=== PATIENT | male | born 1990 | race Caucasian/White ===

== ENCOUNTER 2016-10-24 13:10 | Inpatient (IN) | payer OTHER ==
[2016-10-24 17:38] VITALS: BMI 19.8
--- NOTE | 2016-10-24 18:35 | HP ---
COWS - Scale Resting Pulse: 0= [place] 80 or Below Sweatin= Chills/Flushing Restless Observation: 3= Extraneous Movement Pupil Size: 1= Pupils >than Normal Bone or Joint Aches: 1= Mild Discomfort Runny Nose/ Eye Tearin= Runny Nose/Eyes GI Upset > 30mins: 1= Stomach Cramp Tremor Observation: 1= Tremor [place], Not Seen Yawning Observation: 1= 1-2x During Session Anxiety or Irritability: 2=Irritable/Anxious Goose Flesh Skin: 0=Smooth Skin COWS Score: 13 Admission ROS S - [facility] Chief Complaint: WITHDRAWAL SYMPTOMS Allergies/Adverse Reactions: Allergies Allergy/AdvReac Type Severity Reaction Status Date / Time No Known Allergies Allergy Verified 10/24/16 17:34 History of Present Illness: 26 Y.O. MAN WITH A HISTORY OF HEROIN DEPENDENCE IS HERE SEEKING DETOX. THIS IS HIS FIRST ADMISSION TO [facility]. HE REPORTS HE WAS IN [facility] IN 03/2016 FOR DETOX BUT LEFT AMA. Exam Limitations: No Limitations - Ebola screening Have you traveled outside of the country in the last 21 days: No Have you been sick,other than usual withdrawal symptoms: No - Review of Systems Constitutional: Changes in sleep EENT: reports: No Symptoms Reported Respiratory: reports: No Symptoms reported Cardiac: reports: No Symptoms Reported GI: reports: No Symptoms Reported : reports: No Symptoms Reported Musculoskeletal: reports: No Symptoms Reported Integumentary: reports: No Symptoms Reported Neuro: reports: No Symptoms reported Endocrine: reports: No Symptoms Reported Hematology: reports: No Symptoms Reported Psychiatric: reports: Judgement Intact, Mood/Affect Appropiate, Orientated x3 Other Systems: Reviewed and Negative Patient History - Patient Medical History Hx Anemia: No Hx Asthma: No Hx Chronic Obstructive Pulmonary Disease (COPD): No Hx Cancer: No Hx Cardiac Disorders: No Hx Congestive Heart Failure: No Hx Hypertension: No Hx Hypercholesterolemia: No Hx Pacemaker: No HX Cerebrovascular Accident: No Hx Seizures: No Hx Dementia: No Hx Diabetes: No Hx Gastrointestinal Disorders: No Hx Liver Disease: No Hx Genitourinary Disorders: No Hx Sexually Transmitted Disorders: No Hx Renal Disease (ESRD): No Hx Thyroid Disease: No Hx Human Immunodeficiency Virus (HIV): No Hx Hepatitis C: No Hx Depression: No Hx Suicide Attempt: No Hx Bipolar Disorder: No Hx Schizophrenia: No - Patient Surgical History Past Surgical History: No Hx Neurologic Surgery: No Hx Cataract Extraction: No Hx Cardiac Surgery: No Hx Lung Surgery: No Hx Breast Surgery: No Hx Breast Biopsy: No Hx Abdominal Surgery: No Hx Appendectomy: No Hx Cholecystectomy: No Hx Genitourinary Surgery: No Hx Section: No Hx Orthopedic Surgery: No Other Surgical History: FX REPAIR-2000 Anesthesia Reaction: Yes - PPD History Previous Implant?: Yes Documented Results: Negative w/o proof PPD to be Administered?: Yes - Reproductive History Patient is a Female of Child Bearing Age (11 -55 yrs old): No - Smoking Cessation Smoking history: Current every day smoker Have you smoked in the past 12 months: Yes Aproximately how many cigarettes per day: 20 Hx Chewing Tobacco Use: No Initiated information on smoking cessation: Yes 'Breaking Loose' booklet given: 10/24/16 - Substance & Tx. History Hx Alcohol Use: No Hx Substance Use: Yes Substance Use Type: Heroin Hx Substance Use Treatment: Yes (LAST DETOX IN 03/2016) - Substances Abused Heroin Route: Injection Frequency: Daily Amount used: 20 BAGS Age of first use: 22 Date of Last Use: 10/24/16 Family Disease History - Family Disease History Family History: Denies Admission Physical Exam BHS - Vital Signs Vital Signs: Vital Signs - 24 hr 10/24/16 17:36 Temperature 98.1 F Pulse Rate 70 Respiratory 18 Rate Blood Pressure 132/75 - Physical General Appearance: Yes: No Apparent Distress, Nourished, Appropriately Dressed HEENTM: Yes: Hearing grossly Normal, Normocephalic, Normal Voice Respiratory: Yes: Chest Non-Tender, Lungs Clear, Normal Breath Sounds, No Respiratory Distress, No Accessory Muscle Use Neck: Yes: No masses,lesions,Nodules Breast: Yes: Breast Exam Deferred Cardiology: Yes: Regular Rhythm, Regular Rate Abdominal: Yes: Non Tender, Flat, Soft Genitourinary: Yes: Other (NO COMPLAINTS REPORTED) Back: Yes: Normal Inspection Musculoskeletal: Yes: Gait Steady Extremities: Yes: Normal Capillary Refill, Normal Inspection, Normal Range of Motion Neurological: Yes: staffing administrator II-XII NML intact, Fully Oriented, Alert, Normal Mood/ Affect, Normal Response Integumentary: Yes: Normal Color, Dry, Warm, Track Meyers Lymphatic: Yes: Within Normal Limits - Diagnostic (1) Opioid dependence with withdrawal Current Visit: Yes Status: Chronic (2) Nicotine dependence Current Visit: Yes Status: Chronic Cleared for Admission [facility] - Detox or Rehab [facility] Level of Care: Medically Managed Detox Regimen/Protocol: Methadone [facility] Breath Alcohol Content Breath Alcohol Content: 0 Urine Drug Screen - Results Drug Screen Negative: No Urine Drug Screen Results: THC-Marijuana, OPI-Opiates
[2016-10-24] MEDS ORDERED: IBUPROFEN 400 MG TABLET (FP) PO PRN (18:45)
[2016-10-24] MEDS ORDERED: LOPERAMIDE HCL 2 MG CAPSULE PO PRN (18:45)
[2016-10-24] MEDS ORDERED: MENTHOL/PHENOL 1 EACH UD MM PRN (18:45)
[2016-10-24] MEDS ORDERED: MAGNESIUM HYDROX 2400MG/30ML ORAL SUSPENSION 30 ML CUP PO PRN (18:45)
[2016-10-24] MEDS ORDERED: guaiFENesin/D-METHORPHAN HB 10 ML UNIT-DOSE CUPS PO PRN (18:45)
[2016-10-24] MEDS ORDERED: ACETAMINOPHEN 325 MG TABLET (FP) PO PRN (18:45)
[2016-10-24] MEDS ORDERED: NICOTINE POLACRILEX 2 MG GUM BC PRN (18:45)
[2016-10-24] MEDS ORDERED: hydrOXYzine PAMOATE 50 MG CAPSULE (FP) PO PRN (18:45)
[2016-10-24] MEDS ORDERED: MAGNESIUM CITRATE 300 ML BOTTLE PO PRN (18:45)
[2016-10-24] MEDS ORDERED: P-EPHED 60MG/TRIPROLIDI 2.5MG TABLET PO PRN (18:45)
[2016-10-24] MEDS ORDERED: MAG HYDROX/AL HYDROX/SIMETH 30 ML UNIT-DOSE CUP PO PRN (18:45)
[2016-10-24] MEDS ORDERED: METHADONE HCL 10 MG TABLET (FOR DETOX USE ONLY) PO ONE ×2 (19:15→23:00)
[2016-10-24] MEDS: diazePAM 5 MG TABLET PO PRN (19:42)
[2016-10-24 19:58] LABS: URINE APPEARANCE CLOUDY; URINE BILIRUBIN NEGATIVE (NEGATIVE); URINE BLOOD NEGATIVE (NEGATIVE); URINE COLOR DKYELLOW; URINE GLUCOSE (UA) NEGATIVE (NEGATIVE); URINE KETONE NEGATIVE (NEGATIVE); URINE LEUK ESTERASE NEGATIVE (NEGATIVE); URINE NITRITE NEGATIVE (NEGATIVE); URINE PROTEIN NEGATIVE (NEGATIVE); URINE UROBILINOGEN NEGATIVE mg/dL (0.2-1.0)
[2016-10-24] MEDS: THIAMINE HCL 100 MG TABLET (FP) PO SCH (22:38)
[2016-10-24] MEDS: diphenhydrAMINE HCL 50 MG CAPSULE PO PRN (22:39)
[2016-10-25] MEDS: diazePAM 5 MG TABLET PO PRN ×5 (05:01→22:46)
--- NOTE | 2016-10-25 09:24 | PN ---
S COWS - Scale Resting Pulse: 0= [place] 80 or Below Sweatin= Chills/Flushing Restless Observation: 3= Extraneous Movement Pupil Size: 2= Moderately Dilated Bone or Joint Aches: 4=Acute Joint/Muscle Pain Runny Nose/ Eye Tearin= Nasal Congestion GI Upset > 30mins: 1= Stomach Cramp Tremor Observation of Outstretched Hands: 1= Tremor [place], Not Seen Yawning Observation: 2= >3x During Session Anxiety or Irritability: 2=Irritable/Anxious Goose Flesh Skin: 0=Smooth Skin COWS Score: 17 BHS Progress Note (SOAP) Subjective: MUSCLE ACHES/CRAMPS LOWER EXTREMITIES,FATIGUE,YAWNING,DECREASED APPETITE, INTERMITTENT SLEEP. Objective: 10/25/16 09:23 Vital Signs Temperature 98 F 10/25/16 05:48 Pulse Rate 74 10/25/16 05:48 Respiratory Rate 18 10/25/16 05:48 Blood Pressure 133/80 10/25/16 05:48 O2 Sat by Pulse Oximetry (%) Laboratory Last Values Urine Color Dkyellow 10/24/16 19:15 Urine Appearance Cloudy 10/24/16 19:15 Urine pH 7.0 (5.0-8.0) 10/24/16 19:15 Ur Specific [place] 1.015 (1.005-1.025) 10/24/16 19:15 Urine Protein Negative (NEGATIVE) 10/24/16 19:15 Urine Glucose (UA) Negative (NEGATIVE) 10/24/16 19:15 Urine Ketones Negative (NEGATIVE) 10/24/16 19:15 Urine Blood Negative (NEGATIVE) 10/24/16 19:15 Urine Nitrite Negative (NEGATIVE) 10/24/16 19:15 Urine Bilirubin Negative (NEGATIVE) 10/24/16 19:15 Urine Urobilinogen Negative mg/dL (0.2-1.0) 10/24/16 19:15 Ur Leukocyte Esterase Negative (NEGATIVE) 10/24/16 19:15 OTHER LAB RESULTS PENDING Assessment: 10/25/16 09:24 WITHDRAWAL SX Plan: CONTINUE DETOX
[2016-10-25] MEDS ORDERED: METHADONE HCL 10 MG TABLET (FOR DETOX USE ONLY) PO ONE (10:00)
[2016-10-25] MEDS: cloNIDine HCL 0.1 MG TABLET PO PRN (10:11)
[2016-10-25] MEDS: NICOTINE 21 MG/24 HOURS TOPICAL PATCH TD SCH (10:12)
[2016-10-25] MEDS: PRENATAL VITAMINS W/ FOLIC ACID TABLET (FP) PO SCH (10:12)
[2016-10-25 10:20] LABS: MCH 29.5 pg (25.7-33.7); MCHC 33.2 g/dl (32.0-35.9); PLATELET COUNT 224 K/MM3 (134-434); RDW 12.9 % (11.9-15.9); WHITE BLOOD COUNT 7.6 K/mm3 (4.0-10.0)
[2016-10-25 10:53] LABS: ALBUMIN 3.6 g/dl (3.4-5.0); ALK PHOS 93 U/L (45-117); ANION GAP 7 (8-16); BILIRUBIN,TOTAL 0.3 mg/dL (0.2-1.0); CALCIUM 9.1 mg/dL (8.5-10.1); CO2 26 mmol/L (21-32); CREATININE 0.7 mg/dL (0.7-1.3); GLUCOSE,RANDOM 98 mg/dL (74-106); SGOT/AST 12 U/L (15-37); SGPT/ALT 20 U/L (12-78)
--- NOTE | 2016-10-25 11:10 | EKG ---
Test Reason : Blood Pressure : / mmHG Vent. Rate : 065 BPM Atrial Rate : 065 BPM P-R Int : 142 ms QRS Dur : 094 ms QT Int : 392 ms P-R-T Axes : 052 071 055 degrees QTc Int : 407 ms NORMAL SINUS RHYTHM MODERATE VOLTAGE CRITERIA FOR LVH, MAY BE NORMAL VARIANT EARLY REPOLARIZATION BORDERLINE ECG NO PREVIOUS ECGS AVAILABLE Confirmed by REVA ROBB, BETSY ([id number]) on 10/25/2016 11:10:02 AM Referred By: Confirmed By:BETSY ARDON MD
--- NOTE | 2016-10-25 11:14 | EKG ---
Test Reason : Blood Pressure : / mmHG Vent. Rate : 064 BPM Atrial Rate : 064 BPM P-R Int : 150 ms QRS Dur : 094 ms QT Int : 396 ms P-R-T Axes : 052 056 037 degrees QTc Int : 408 ms SINUS RHYTHM WITH MARKED SINUS ARRHYTHMIA OTHERWISE NORMAL ECG WHEN COMPARED WITH ECG OF 24-OCT-2016 18:48, NO SIGNIFICANT CHANGE WAS FOUND Confirmed by BETSY ARDON MD ([id number]) on 10/25/2016 11:13:34 AM Referred By: Confirmed By:BETSY ARDON MD
[2016-10-25 14:14] LABS: HIV 1 & 2 AB NEGATIVE; HIV 1 AGp24 NEGATIVE
[2016-10-25] MEDS: diphenhydrAMINE HCL 50 MG CAPSULE PO PRN (22:45)
[2016-10-25] MEDS: THIAMINE HCL 100 MG TABLET (FP) PO SCH (22:45)
[2016-10-26] MEDS: diazePAM 5 MG TABLET PO PRN ×2 (06:01→10:35)
[2016-10-26] MEDS: cloNIDine HCL 0.1 MG TABLET PO PRN (06:01)
[2016-10-26 09:26] VITALS: BP 137/78; PULSE 79; TEMP 96.8
--- NOTE | 2016-10-26 09:55 | PN ---
BHS COWS - Scale Resting Pulse: 1= [place] 81-100 Sweatin= Chills/Flushing Restless Observation: 3= Extraneous Movement Pupil Size: 2= Moderately Dilated Bone or Joint Aches: 4=Acute Joint/Muscle Pain Runny Nose/ Eye Tearin= Nasal Congestion GI Upset > 30mins: 1= Stomach Cramp Tremor Observation of Outstretched Hands: 2= Slight Tremor Visible Yawning Observation: 2= >3x During Session Anxiety or Irritability: 2=Irritable/Anxious Goose Flesh Skin: 0=Smooth Skin COWS Score: 19 BHS Progress Note (SOAP) Subjective: IRRITABILITY,HOT/COLD SWEATS,MUSCLE ACHES/SPASMS,LOSS OF APPETITE,INTERMITTENT SLEEP. Objective: 10/26/16 09:52 Vital Signs Temperature 96.8 F L 10/26/16 09:20 Pulse Rate 79 10/26/16 09:20 Respiratory Rate 16 10/26/16 09:20 Blood Pressure 137/78 10/26/16 09:20 O2 Sat by Pulse Oximetry (%) Laboratory Last Values WBC 7.6 K/mm3 (4.0-10.0) 10/25/16 06:30 RBC 4.63 M/mm3 (4.00-5.60) 10/25/16 06:30 Hgb 13.7 GM/dL (11.7-16.9) 10/25/16 06:30 Hct 41.2 % (35.4-49) 10/25/16 06:30 MCV 89.0 fl (80-96) 10/25/16 06:30 MCH 29.5 pg (25.7-33.7) 10/25/16 06:30 MCHC 33.2 g/dl (32.0-35.9) 10/25/16 06:30 RDW 12.9 % (11.9-15.9) 10/25/16 06:30 Plt Count 224 K/MM3 (134-434) 10/25/16 06:30 MPV 8.0 fl (7.5-11.1) 10/25/16 06:30 Sodium 140 mmol/L (136-145) 10/25/16 06:30 Potassium 4.3 mmol/L (3.5-5.1) 10/25/16 06:30 Chloride 107 mmol/L (98-107) 10/25/16 06:30 Carbon Dioxide 26 mmol/L (21-32) 10/25/16 06:30 Anion Gap 7 (8-16) L 10/25/16 06:30 BUN 7 mg/dL (7-18) 10/25/16 06:30 Creatinine 0.7 mg/dL (0.7-1.3) 10/25/16 06:30 Creat Clearance w eGFR > 60 (>60) 10/25/16 06:30 Random Glucose 98 mg/dL (74-106) 10/25/16 06:30 Calcium 9.1 mg/dL (8.5-10.1) 10/25/16 06:30 Total Bilirubin 0.3 mg/dL (0.2-1.0) 10/25/16 06:30 AST 12 U/L (15-37) L 10/25/16 06:30 ALT 20 U/L (12-78) 10/25/16 06:30 Alkaline Phosphatase 93 U/L (45-117) 10/25/16 06:30 Total Protein 7.0 g/dl (6.4-8.2) 10/25/16 06:30 Albumin 3.6 g/dl (3.4-5.0) 10/25/16 06:30 Urine Color Dkyellow 10/24/16 19:15 Urine Appearance Cloudy 10/24/16 19:15 Urine pH 7.0 (5.0-8.0) 10/24/16 19:15 Ur Specific [place] 1.015 (1.005-1.025) 10/24/16 19:15 Urine Protein Negative (NEGATIVE) 10/24/16 19:15 Urine Glucose (UA) Negative (NEGATIVE) 10/24/16 19:15 Urine Ketones Negative (NEGATIVE) 10/24/16 19:15 Urine Blood Negative (NEGATIVE) 10/24/16 19:15 Urine Nitrite Negative (NEGATIVE) 10/24/16 19:15 Urine Bilirubin Negative (NEGATIVE) 10/24/16 19:15 Urine Urobilinogen Negative mg/dL (0.2-1.0) 10/24/16 19:15 Ur Leukocyte Esterase Negative (NEGATIVE) 10/24/16 19:15 RPR Titer Nonreactive (NONREACTIVE) 07/19/17 06:30 Hepatitis C Antibody <0.1 s/co ratio (0.0-0.9) 10/24/16 06:30 HIV 1&2 Antibody Screen Negative 10/25/16 06:30 HIV P24 Antigen Negative 10/25/16 06:30 LABS NOTED Assessment: 10/26/16 09:52 WITHDRAWAL SX Plan: CONTINUE DETOX INCREASE PO FLUIDS FLEXERIL DIRECTED INCREASE BENADRYL 100 MG PO HS
[2016-10-26] MEDS ORDERED: METHADONE HCL 5 MG TABLET (FOR DETOX USE ONLY) PO ONE (10:00)
[2016-10-26] MEDS ORDERED: cloNIDine HCL 0.1 MG TABLET PO SCH ×2 (10:00→14:00)
[2016-10-26] MEDS: PRENATAL VITAMINS W/ FOLIC ACID TABLET (FP) PO SCH (10:35)
[2016-10-26] MEDS: NICOTINE 21 MG/24 HOURS TOPICAL PATCH TD SCH (10:38)
[2016-10-26] MEDS ORDERED: CYCLOBENZAPRINE HCL 10 MG TABLET (FP) PO SCH (14:00)
--- NOTE | 2016-10-26 14:41 | DS ---
[facility] Detox Discharge Summary Admission Date: 10/24/16 Discharge Date: 10/26/16 - History Present History: Opioid Dependence Additional Comments: PT DECLINED TO CONTINUE WITH DETOX STATING "I WANNA GO SOMEWHERE ELSE". SAYS HE WANTS MORE MEDICINE. ALL MANAGEMENT EFFORTS TO URB THE PATIENT'S WITHDRAWAL SX PROVED UNSUCCESSFUL. ALERT O X 3. NAD. Pertinent Past History: UNREMARKABLE - Physical Exam Results Vital Signs: Vital Signs Temperature 96.8 F L 10/26/16 09:20 Pulse Rate 79 10/26/16 09:20 Respiratory Rate 16 10/26/16 09:20 Blood Pressure 137/78 10/26/16 09:20 O2 Sat by Pulse Oximetry (%) Pertinent Admission Physical Exam Findings: WITHDRAWAL SX Laboratory Last Values WBC 7.6 K/mm3 (4.0-10.0) 10/25/16 06:30 RBC 4.63 M/mm3 (4.00-5.60) 10/25/16 06:30 Hgb 13.7 GM/dL (11.7-16.9) 10/25/16 06:30 Hct 41.2 % (35.4-49) 10/25/16 06:30 MCV 89.0 fl (80-96) 10/25/16 06:30 MCH 29.5 pg (25.7-33.7) 10/25/16 06:30 MCHC 33.2 g/dl (32.0-35.9) 10/25/16 06:30 RDW 12.9 % (11.9-15.9) 10/25/16 06:30 Plt Count 224 K/MM3 (134-434) 10/25/16 06:30 MPV 8.0 fl (7.5-11.1) 10/25/16 06:30 Sodium 140 mmol/L (136-145) 10/25/16 06:30 Potassium 4.3 mmol/L (3.5-5.1) 10/25/16 06:30 Chloride 107 mmol/L (98-107) 10/25/16 06:30 Carbon Dioxide 26 mmol/L (21-32) 10/25/16 06:30 Anion Gap 7 (8-16) L 10/25/16 06:30 BUN 7 mg/dL (7-18) 10/25/16 06:30 Creatinine 0.7 mg/dL (0.7-1.3) 10/25/16 06:30 Creat Clearance w eGFR > 60 (>60) 10/25/16 06:30 Random Glucose 98 mg/dL (74-106) 10/25/16 06:30 Calcium 9.1 mg/dL (8.5-10.1) 10/25/16 06:30 Total Bilirubin 0.3 mg/dL (0.2-1.0) 10/25/16 06:30 AST 12 U/L (15-37) L 10/25/16 06:30 ALT 20 U/L (12-78) 10/25/16 06:30 Alkaline Phosphatase 93 U/L (45-117) 10/25/16 06:30 Total Protein 7.0 g/dl (6.4-8.2) 10/25/16 06:30 Albumin 3.6 g/dl (3.4-5.0) 10/25/16 06:30 Urine Color Dkyellow 10/24/16 19:15 Urine Appearance Cloudy 10/24/16 19:15 Urine pH 7.0 (5.0-8.0) 10/24/16 19:15 Ur Specific [place] 1.015 (1.005-1.025) 10/24/16 19:15 Urine Protein Negative (NEGATIVE) 10/24/16 19:15 Urine Glucose (UA) Negative (NEGATIVE) 10/24/16 19:15 Urine Ketones Negative (NEGATIVE) 10/24/16 19:15 Urine Blood Negative (NEGATIVE) 10/24/16 19:15 Urine Nitrite Negative (NEGATIVE) 10/24/16 19:15 Urine Bilirubin Negative (NEGATIVE) 10/24/16 19:15 Urine Urobilinogen Negative mg/dL (0.2-1.0) 10/24/16 19:15 Ur Leukocyte Esterase Negative (NEGATIVE) 10/24/16 19:15 RPR Titer Nonreactive (NONREACTIVE) 10/25/16 06:30 Hepatitis C Antibody <0.1 s/co ratio (0.0-0.9) 10/24/16 06:30 HIV 1&2 Antibody Screen Negative 10/25/16 06:30 HIV P24 Antigen Negative 10/25/16 06:30 - Treatment Hospital Course: Discharged Condition Good - Medication Discharge Medications: Ambulatory Orders NK [No Known Home Medication] 10/24/16 - Diagnosis (1) Nicotine dependence Status: Acute Qualifiers: Nicotine product type: cigarettes Substance use status: in withdrawal Qualified Code(s): F17.213 - Nicotine dependence, cigarettes, with withdrawal (2) Opioid dependence with withdrawal Status: Acute - AMA Did Patient Leave Against Medical Advice: Yes (AMA)
[2016-10-27] MEDS ORDERED: METHADONE HCL 5 MG TABLET (FOR DETOX USE ONLY) PO ONE (10:00)
[2016-10-28] MEDS ORDERED: METHADONE HCL 10 MG TABLET (FOR DETOX USE ONLY) PO ONE (10:00)
[2016-10-29] MEDS ORDERED: METHADONE HCL 5 MG TABLET (FOR DETOX USE ONLY) PO ONE (06:00)
== END 2016-10-26 14:25 | disposition left against medical advice (07) | DRG 770 ==
LOC: YASAS 13:10 → Y3N 18:09
PROVIDERS: ADMIT Internal Medicine Addiction Medicine; ATTEND Internal Medicine Addiction Medicine
PROC: HZ2ZZZZ Detoxification Services for Substance Abuse Treatment (ICD-10-PCS; principal; 2016-10-26)
DX: F11.23 Opioid dependence with withdrawal (principal); F17.213 Nicotine dependence, cigarettes, with withdrawal
CPT/HCPCS: 36415; 80053; 81003; 85027; 86593; 86803; 87389; 93005; 93010

== ENCOUNTER 2017-03-23 09:48 | Inpatient (IN) | payer OTHER ==
[2017-03-23 10:14] VITALS: BMI 19.3
--- NOTE | 2017-03-23 12:39 | HP ---
Admission [facility] Chief Complaint: REHAB TX FOR DRUG ADDICTION. Allergies/Adverse Reactions: Allergies Allergy/AdvReac Type Severity Reaction Status Date / Time No Known Allergies Allergy Verified 03/23/17 10:27 History of Present Illness: 26 Y/O MALE WITH A HX OF HEROIN DEPENDENCE BUT IN [facility] SEEKING REHAB TX. REFERRED FROM [facility]. Exam Limitations: No Limitations - Ebola screening Have you traveled outside of the country in the last 21 days: No Have you had contact with anyone from an Ebola affected area: No Have you been sick,other than usual withdrawal symptoms: No Do you have a fever: No - Review of Systems Constitutional: Chills, Loss of Appetite, Night Sweats, Changes in sleep, Unintentional Wgt. Loss EENT: reports: Tearing, Nose Congestion, Dental Problems (CAVITIES) Respiratory: reports: No Symptoms reported Cardiac: reports: No Symptoms Reported GI: reports: Constipated : reports: No Symptoms Reported Musculoskeletal: reports: Back Pain, Joint Pain, Muscle Pain Integumentary: reports: Bruising Neuro: reports: Headache, Tremors Endocrine: reports: No Symptoms Reported Hematology: reports: No Symptoms Reported Psychiatric: reports: Orientated x3, Anxious, Depressed Other Systems: Reviewed and Negative Patient History - Patient Medical History Hx Anemia: No Hx Asthma: No Hx Chronic Obstructive Pulmonary Disease (COPD): No Hx Cancer: No Hx Cardiac Disorders: No Hx Congestive Heart Failure: No Hx Hypertension: No Hx Hypercholesterolemia: No Hx Pacemaker: No HX Cerebrovascular Accident: No Hx Seizures: No Hx Dementia: No Hx Diabetes: No Hx Gastrointestinal Disorders: No Hx Liver Disease: No Hx Genitourinary Disorders: No Hx Sexually Transmitted Disorders: No Hx Renal Disease (ESRD): No Hx Thyroid Disease: No Hx Human Immunodeficiency Virus (HIV): No (NEGATIVE HX) Hx Hepatitis C: No Hx Depression: Yes (ON MED) Hx Suicide Attempt: No (DENIES) Hx Bipolar Disorder: No Hx Schizophrenia: No - Patient Surgical History Past Surgical History: Yes Hx Neurologic Surgery: No Hx Cataract Extraction: No Hx Cardiac Surgery: No Hx Lung Surgery: No Hx Breast Surgery: No Hx Breast Biopsy: No Hx Abdominal Surgery: No Hx Appendectomy: No Hx Cholecystectomy: No Hx Genitourinary Surgery: No Hx Section: No Hx Orthopedic Surgery: No Other Surgical History: FX REPAIR-2000 L femur Anesthesia Reaction: Yes - PPD History Previous Implant?: Yes Documented Results: Negative w/o proof Implanted On Prior [facility] Admission?: Yes Date: 10/26/16 ( SIGNED AMA-NO RESULT) Results: NONE PPD to be Administered?: Yes - Reproductive History Patient is a Female of Child Bearing Age (11 -55 yrs old): No (MALE) - Smoking Cessation Smoking history: Current every day smoker Have you smoked in the past 12 months: Yes Aproximately how many cigarettes per day: 20 Hx Chewing Tobacco Use: No Initiated information on smoking cessation: Yes 'Breaking Loose' booklet given: 03/23/17 - Substance & Tx. History Hx Alcohol Use: Yes (BEER ON OCCASION) Hx Substance Use: Yes (HEROIN) Substance Use Type: Heroin Hx Substance Use Treatment: Yes (LAST TX AT [facility] REHAB) - Substances Abused Heroin Route: Injection Frequency: 1-3 times last 30 days Amount used: 2 bags Age of first use: 22 Date of Last Use: 03/19/17 Family Disease History - Family Disease History Family Disease History: Other: Father (HTN), Mother (BIPOLAR DISORDER) Admission Physical Exam S - Vital Signs Vital Signs: Vital Signs - 24 hr 03/23/17 10:04 Temperature 97.7 F Pulse Rate 80 Respiratory 18 Rate Blood Pressure 148/100 - Physical General Appearance: Yes: No Apparent Distress, Anxious HEENTM: Yes: EOMI, Normocephalic, SIOBHAN, Pharynx Normal Respiratory: Yes: Chest Non-Tender, Lungs Clear, Normal Breath Sounds, No Respiratory Distress Neck: Yes: No masses,lesions,Nodules, Supple, Trachea in good position Breast: Yes: Breast Exam Deferred Cardiology: Yes: Regular Rhythm, Regular Rate, S1, S2 Abdominal: Yes: Normal Bowel Sounds, Non Tender, Flat, Soft Genitourinary: Yes: Other (N/C) Musculoskeletal: Yes: full range of Motion, Gait Steady Extremities: Yes: Normal Range of Motion, Non-Tender Neurological: Yes: tread cutter II-XII NML intact, Fully Oriented, Alert, Motor Strength 5/5 Integumentary: Yes: Dry, Warm, Track Meyers (NO REDNESS/SWELLING) Lymphatic: Yes: Within Normal Limits - Diagnostic (1) Nicotine dependence Current Visit: No Status: Acute Qualifiers: Nicotine product type: cigarettes Substance use status: in withdrawal Qualified Code(s): F17.213 - Nicotine dependence, cigarettes, with withdrawal (2) Opioid dependence with withdrawal Current Visit: No Status: Acute Cleared for Admission [facility] - Detox or Rehab Claeared for Rehab Admission: Yes [facility] Breath Alcohol Content Breath Alcohol Content: 0 Urine Drug Screen - Results Drug Screen Negative: No Urine Drug Screen Results: OPI-Opiates, MTD-Methadone, OXY-Oxycodone Inpatient Rehab Admission - Initial Determination Are CD services needed?: Yes Free of communicable disease: Yes Not in need of hospitalization: Yes - Rehab Admission Criteria Patient is meeting Inpatient Rehab admission criteria:: Yes
[2017-03-23] MEDS ORDERED: MENTHOL/PHENOL 1 EACH UD MM PRN (12:53)
[2017-03-23] MEDS ORDERED: LOPERAMIDE HCL 2 MG CAPSULE PO PRN (12:53)
[2017-03-23] MEDS ORDERED: MAGNESIUM HYDROX 2400MG/30ML ORAL SUSPENSION 30 ML CUP PO PRN (12:53)
[2017-03-23] MEDS ORDERED: P-EPHED 60MG/TRIPROLIDI 2.5MG TABLET PO PRN (12:53)
[2017-03-23] MEDS ORDERED: MAGNESIUM CITRATE 300 ML BOTTLE PO PRN (12:53)
[2017-03-23] MEDS ORDERED: guaiFENesin/D-METHORPHAN HB 10 ML UNIT-DOSE CUPS PO PRN (12:53)
[2017-03-23] MEDS ORDERED: IBUPROFEN 400 MG TABLET (FP) PO PRN (12:53)
[2017-03-23] MEDS ORDERED: MAG HYDROX/AL HYDROX/SIMETH 30 ML UNIT-DOSE CUP PO PRN (12:53)
[2017-03-23] MEDS ORDERED: hydrOXYzine PAMOATE 25 MG CAPSULE (FP) PO PRN (12:53)
[2017-03-23] MEDS ORDERED: METHADONE HCL 10 MG TABLET PO ONE (13:01)
--- NOTE | 2017-03-23 13:39 | HP ---
Psychiatrist Admission - Data Date of interview: 03/23/17 Admission source: [facility] MMTP/Court mandated(violation of probation) Identifying data: This is the first [facility] for this 26 years old single male, unemployed with no source of income, domiciled living with family Medical History: Significant for history of orthosurery for fracture left femur. Patient is on methadone 130 mg/day . Smokes cigaettes 1ppd Psychiatric History: Reports that his first psychiatric contact was in January 2017 while admitted to [facility] for inpatient rehab. There, he said he was diagnosed with depression/anxiety and prescribed Zoloft 100 mg po daily and Seroquel 50 mg po HS. On discharge, he was referred to [facility] where he was continued on same medications till he got arrested for violation of probation on Sunday03/20/17. He was released from longterm today and court mandated to attend rehab at this facility. Reports feeling and sleeping well. Requests to resume medication during the course of his treatment in this facility Physical/Sexual Abuse/Trauma History: Denies history of verbal, physical or sexual abuse as well as DV relationship Additional Comment: Reports history of 2 previous misdemeanor arrests on charges of possession of cannabis and possession of narcotic. Reports being on probation for a year Vital Signs: Vital Signs - 24 hr 03/23/17 10:04 Temperature 97.7 F Pulse Rate 80 Respiratory 18 Rate Blood Pressure 148/100 Allergies/Adverse Reactions: Allergies Allergy/AdvReac Type Severity Reaction Status Date / Time No Known Allergies Allergy Verified 03/23/17 10:27 Date of last physical exam: 03/23/17 Concur with the findings of this exam: Yes - Substance Abuse/Tx History Hx Alcohol Use: No Hx Substance Use: Yes Substance Use Type: Heroin (Started using herin at age 22, consumes 2 bags 1-3 times in the last 30 days. Last used on 03/19/17 ) Hx Substance Use Treatment: Yes (3 previous inpt detox & one inpt rehab @ [facility]) Mental Status Exam - Mental Status Exam Alert and Oriented to: Time, Place, Person Cognitive Function: Fair Patient Appearance: Well Groomed Mood: Hopeful, Euthymic Affect: Appropriate Patient Behavior: Cooperative Speech Pattern: Clear Voice Loudness: Normal Thought Process: Intact, Goal Oriented Thought Disorder: Not Present Hallucinations: Denies Suicidal Ideation: Denies Homicidal Ideation: Denies Insight/Judgement: Fair Sleep: Fair Appetite: Good Muscle strength/Tone: Normal Gait/Station: Normal Psychiatric Findings - Problem List ([place] 1, 2,3) (1) Opioid dependence Current Visit: Yes Status: Acute (2) Opioid dependence on agonist therapy Current Visit: Yes Status: Acute (3) Nicotine dependence Current Visit: Yes Status: Acute (4) Depressive disorder Current Visit: Yes Status: Chronic (5) Substance induced mood disorder Current Visit: Yes Status: Ruled-out (6) Fracture of left femur Current Visit: Yes Status: Acute - Initial Treatment Plan Initial Treatment Plan: 1) Resume Zoloft 100 mg po daily and Seroquel 50 mg po HS. 2) Monitor progress
[2017-03-23] MEDS: NICOTINE 21 MG/24 HOURS TOPICAL PATCH TD SCH (15:03)
[2017-03-23] MEDS: NICOTINE POLACRILEX 4 MG GUM BUC PRN (15:04)
[2017-03-23 16:35] LABS: HEMATOCRIT 43.2 % (35.4-49); HEMOGLOBIN 14.4 GM/dL (11.7-16.9); MCH 30.3 pg (25.7-33.7); MCHC 33.5 g/dl (32.0-35.9); MEAN CELL VOLUME 90.6 fl (80-96); MEAN PLT VOLUME 8.5 fl (7.5-11.1); PLATELET COUNT 233 K/MM3 (134-434); RBC 4.76 M/mm3 (4.00-5.60); RDW 13.4 % (11.9-15.9); WHITE BLOOD COUNT 12.7 K/mm3 (4.0-10.0)
[2017-03-23 16:39] LABS: URINE APPEARANCE CLOUDY; URINE BILIRUBIN NEGATIVE (NEGATIVE); URINE BLOOD NEGATIVE (NEGATIVE); URINE COLOR AMBER; URINE GLUCOSE (UA) NEGATIVE (NEGATIVE); URINE KETONE TRACE (NEGATIVE); URINE LEUK ESTERASE NEGATIVE (NEGATIVE); URINE NITRITE NEGATIVE (NEGATIVE)
[2017-03-23 17:05] LABS: ANION GAP 7 (8-16); BLOOD UREA NITROGEN 14 mg/dL (7-18); CALCIUM 8.5 mg/dL (8.5-10.1); CHLORIDE 106 mmol/L (98-107); CO2 29 mmol/L (21-32); GLUCOSE,RANDOM 91 mg/dL (74-106); POTASSIUM 3.7 mmol/L (3.5-5.1); SODIUM 142 mmol/L (136-145)
[2017-03-23 17:09] LABS: ALK PHOS 78 U/L (45-117); BILIRUBIN,TOTAL 0.3 mg/dL (0.2-1.0); CREATININE 0.8 mg/dL (0.7-1.3); SGOT/AST 11 U/L (15-37); SGPT/ALT 25 U/L (12-78); TOT PROT 7.2 g/dl (6.4-8.2)
[2017-03-23 17:11] LABS: URINE PROTEIN 1+ (NEGATIVE)
[2017-03-23 17:34] LABS: CALCIUM OXALATE CRYSTALS RARE /hpf (NONE SEEN); URINE BACTERIA RARE /hpf (NONE SEEN); URINE MUCUS MANY
[2017-03-23] MEDS: THIAMINE HCL 100 MG TABLET (FP) PO SCH (21:31)
[2017-03-23] MEDS: QUEtiapine FUMARATE 50 MG TABLET PO SCH (21:31)
[2017-03-24] MEDS ORDERED: METHADONE HCL 40 MG DISPERSABLE TABLET ONE (05:14)
[2017-03-24] MEDS ORDERED: METHADONE HCL 10 MG TABLET ONE (05:14)
[2017-03-24] MEDS ORDERED: METHADONE 40 MG, METHADONE 30 MG PO ONE (06:00)
[2017-03-24] MEDS ORDERED: METHADONE HCL 10 MG TABLET PO ONE ×2 (06:00)
[2017-03-24] MEDS: PRENATAL VITAMINS W/ FOLIC ACID TABLET (FP) PO SCH (10:01)
[2017-03-24] MEDS: NICOTINE 21 MG/24 HOURS TOPICAL PATCH TD SCH (10:01)
[2017-03-24] MEDS: NICOTINE POLACRILEX 4 MG GUM BUC PRN (10:01)
[2017-03-24] MEDS: SERTRALINE HCL 50 MG TABLET (FP) PO SCH (10:01)
[2017-03-24] MEDS: THIAMINE HCL 100 MG TABLET (FP) PO SCH (21:29)
[2017-03-24] MEDS: QUEtiapine FUMARATE 50 MG TABLET PO SCH (21:30)
[2017-03-25] MEDS ORDERED: METHADONE HCL 40 MG DISPERSABLE TABLET PO ONE (06:00)
[2017-03-25] MEDS: PRENATAL VITAMINS W/ FOLIC ACID TABLET (FP) PO SCH (10:03)
[2017-03-25] MEDS: SERTRALINE HCL 50 MG TABLET (FP) PO SCH (10:03)
[2017-03-25] MEDS: NICOTINE 21 MG/24 HOURS TOPICAL PATCH TD SCH (10:03)
[2017-03-25] MEDS: ACETAMINOPHEN 325 MG TABLET (FP) PO PRN ×2 (10:04→21:22)
[2017-03-25] MEDS: NICOTINE POLACRILEX 4 MG GUM BUC PRN (10:05)
[2017-03-25] MEDS: QUEtiapine FUMARATE 50 MG TABLET PO SCH (21:21)
[2017-03-25] MEDS: THIAMINE HCL 100 MG TABLET (FP) PO SCH (21:22)
[2017-03-26] MEDS ORDERED: METHADONE HCL 40 MG DISPERSABLE TABLET PO ONE (06:00)
[2017-03-26] MEDS: NICOTINE 21 MG/24 HOURS TOPICAL PATCH TD SCH (09:48)
[2017-03-26] MEDS: PRENATAL VITAMINS W/ FOLIC ACID TABLET (FP) PO SCH (09:48)
[2017-03-26] MEDS: SERTRALINE HCL 50 MG TABLET (FP) PO SCH (09:48)
[2017-03-26] MEDS: NICOTINE POLACRILEX 4 MG GUM BUC PRN ×3 (09:50→18:06)
--- NOTE | 2017-03-26 10:37 | PN ---
Psychiatric Progress Note Vital Signs: Vital Signs Period Temp Pulse Resp BP Sys/Bird Pulse Ox Last 24 Hr 98.6 F 76 18-18 136/86 Date of Session: 03/26/17 Chief Complaint:: Anxiety/insomnia HPI: Patient addressing Opoid Dependence comorobid with Opoid Dependence on Agonist Therapy, Depressive Disorder ROS: 1) Discontinue Seroquel 50 mg po HS. 2) Start Seroquel 100 mg po daily and Hydroxyzine 50 mg po Q 4hrs prn for anxiety Current Medications: Active Medications Generic Name Dose Route Start Last Admin Trade Name Freq PRN Reason Stop Dose Admin Acetaminophen 650 mg 03/23/17 12:53 03/25/17 21:22 Tylenol - PO 650 mg Q4H PRN Administration PAIN Al Hydroxide/Mg Hydroxide 30 ml 03/23/17 12:53 Mylanta Oral Suspension - PO Q6H PRN DYSPEPSIA Eucalyptus/Menthol/Phenol/Sorbitol 1 each 03/23/17 12:53 Cepastat Lozenge - MM Q4H PRN SORE THROAT Guaifenesin 10 ml 03/23/17 12:53 Robitussin Dm - PO Q6H PRN COUGH Ibuprofen 400 mg 03/23/17 12:53 Motrin - PO Q6H PRN SEVERE PAIN Loperamide HCl 4 mg 03/23/17 12:53 Imodium - PO Q6H PRN DIARRHEA Magnesium Citrate 300 ml 03/23/17 12:53 Citroma - PO Q48H PRN CONSTIPATION Magnesium Hydroxide 30 ml 03/23/17 12:53 Milk Of Magnesia - PO DAILY PRN CONSTIPATION Methadone HCl 120 mg 04/02/17 06:00 Dolophine - PO 04/03/17 06:01 DAILY@0600 COUNTS INCLUDE 234 BEDS AT THE [facility] Methadone HCl 80 mg/ Methadone 90 mg 03/27/17 06:00 HCl 10 mg PO 03/27/17 06:01 ONCE ONE Methadone HCl 80 mg/ Methadone 90 mg 03/28/17 06:00 HCl 10 mg PO 03/28/17 06:01 ONCE ONE Methadone HCl 80 mg/ Methadone 100 mg 03/29/17 06:00 HCl 20 mg PO 03/30/17 06:01 DAILY@0600 COUNTS INCLUDE 234 BEDS AT THE [facility] Methadone HCl 80 mg/ Methadone 110 mg 03/31/17 06:00 HCl 30 mg PO 04/01/17 06:01 DAILY@0600 COUNTS INCLUDE 234 BEDS AT THE [facility] Methadone HCl 120 mg/ 130 mg 04/04/17 06:00 Methadone HCl 10 mg PO DAILY@0600 COUNTS INCLUDE 234 BEDS AT THE [facility] Nicotine 21 mg 03/23/17 14:00 03/26/17 09:48 Nicoderm Patch - TD 21 mg DAILY ANTONY Administration Nicotine Polacrilex 4 mg 03/23/17 12:53 03/26/17 09:50 Nicorette Gum - BUC 4 mg Q2H PRN Administration NICOTINE REPLACEMENT RX Multivit/Folic Acid/Iron 1 tab 03/24/17 10:00 03/26/17 09:48 Vitamins (Sjr) - PO 1 tab DAILY ANTONY Administration Pseudoephedrine/Triprolidine 1 combo 03/23/17 12:53 Actifed - PO TID PRN NASAL CONGESTION Quetiapine Fumarate 50 mg 03/23/17 22:00 03/25/17 21:21 Seroquel - PO 50 mg HS ANTONY Administration Sertraline HCl 100 mg 03/24/17 10:00 03/26/17 09:48 Zoloft - PO 100 mg DAILY ANTONY Administration Thiamine HCl 100 mg 03/23/17 22:00 03/25/17 21:22 Vitamin B1 - PO 100 mg HS ANTONY Administration Current Side Effect: No Lab tests ordered: Yes Lab tests reviewed: Yes Provider note:: Patient reports feeling anxious and experiencing difficulty to sleep. Told conventional mortgage underwriter that he has problem to sleep and stay asleep despite taking medications. He is currently on Zoloft 100 mg po daily and Seroquel 50 mg po HS.Requests to increase dosage of both medications. Total face to face time:: 25 Mental Status Exam - Mental Status Exam Alert and Oriented to: Time, Place, Person Cognitive Function: Fair Patient Appearance: Well Groomed Mood: Anxious Affect: Blunted Patient Behavior: Cooperative Speech Pattern: Clear Voice Loudness: Normal Thought Process: Intact, Goal Oriented Thought Disorder: Not Present Hallucinations: Denies Suicidal Ideation: Denies Homicidal Ideation: Denies Insight/Judgement: Fair Sleep: Poorly Appetite: Good Muscle strength/Tone: Normal Gait/Station: Normal Psychiatric Treatment Plan - Problem List (1) Opioid dependence Current Visit: Yes (2) Opioid dependence on agonist therapy Current Visit: Yes (3) Nicotine dependence Current Visit: Yes (4) Depressive disorder Current Visit: Yes (5) Substance induced mood disorder Current Visit: Yes (6) Fracture of left femur Current Visit: Yes Initial treatment plan: 1) Discontinue Seroquel 50 mg po HS. 2) Start Seroquel 100 mg po HS and Vistaril 50 mg po Q 4hrs prn for anxiety. 3) Monitor progress
[2017-03-26] MEDS: QUEtiapine FUMARATE 100 MG TABLET (FP) PO SCH (21:42)
[2017-03-26] MEDS: ACETAMINOPHEN 325 MG TABLET (FP) PO PRN (21:42)
[2017-03-26] MEDS: hydrOXYzine PAMOATE 50 MG CAPSULE (FP) PO PRN (21:42)
[2017-03-26] MEDS: THIAMINE HCL 100 MG TABLET (FP) PO SCH (21:42)
--- NOTE | 2017-03-27 01:58 | EKG ---
Test Reason : Blood Pressure : / mmHG Vent. Rate : 067 BPM Atrial Rate : 067 BPM P-R Int : 126 ms QRS Dur : 094 ms QT Int : 410 ms P-R-T Axes : 042 061 038 degrees QTc Int : 433 ms NORMAL SINUS RHYTHM MINIMAL VOLTAGE CRITERIA FOR LVH, MAY BE NORMAL VARIANT BORDERLINE ECG WHEN COMPARED WITH ECG OF 25-OCT-2016 08:12, NO SIGNIFICANT CHANGE WAS FOUND Confirmed by ELIJAH ROD MD ([id number]) on 03/27/2017 1:57:51 AM Referred By: Confirmed By:ELIJAH ROD MD
[2017-03-27] MEDS ORDERED: METHADONE HCL 10 MG TABLET ONE (04:06)
[2017-03-27] MEDS ORDERED: METHADONE HCL 40 MG DISPERSABLE TABLET ONE (04:06)
[2017-03-27] MEDS ORDERED: METHADONE 80 MG, METHADONE 10 MG PO ONE (06:00)
[2017-03-27] MEDS ORDERED: METHADONE HCL 10 MG TABLET PO ONE (06:00)
[2017-03-27] MEDS: hydrOXYzine PAMOATE 50 MG CAPSULE (FP) PO PRN ×2 (10:14→21:11)
[2017-03-27] MEDS: SERTRALINE HCL 50 MG TABLET (FP) PO SCH (10:14)
[2017-03-27] MEDS: PRENATAL VITAMINS W/ FOLIC ACID TABLET (FP) PO SCH (10:14)
[2017-03-27] MEDS: NICOTINE POLACRILEX 4 MG GUM BUC PRN ×3 (10:14→21:12)
[2017-03-27] MEDS: NICOTINE 21 MG/24 HOURS TOPICAL PATCH TD SCH (10:15)
[2017-03-27] MEDS: ACETAMINOPHEN 325 MG TABLET (FP) PO PRN (21:11)
[2017-03-27] MEDS: QUEtiapine FUMARATE 100 MG TABLET (FP) PO SCH (21:11)
[2017-03-27] MEDS: THIAMINE HCL 100 MG TABLET (FP) PO SCH (21:11)
[2017-03-28] MEDS ORDERED: METHADONE HCL 40 MG DISPERSABLE TABLET ONE (04:08)
[2017-03-28] MEDS ORDERED: METHADONE HCL 10 MG TABLET ONE (04:08)
[2017-03-28] MEDS ORDERED: METHADONE 80 MG, METHADONE 10 MG PO ONE (06:00)
[2017-03-28] MEDS ORDERED: METHADONE HCL 10 MG TABLET PO ONE (06:00)
[2017-03-28] MEDS: hydrOXYzine PAMOATE 50 MG CAPSULE (FP) PO PRN ×3 (06:22→21:29)
[2017-03-28] MEDS: NICOTINE POLACRILEX 4 MG GUM BUC PRN ×5 (06:22→21:31)
[2017-03-28] MEDS: SERTRALINE HCL 50 MG TABLET (FP) PO SCH (10:03)
[2017-03-28] MEDS: NICOTINE 21 MG/24 HOURS TOPICAL PATCH TD SCH (10:03)
[2017-03-28] MEDS: PRENATAL VITAMINS W/ FOLIC ACID TABLET (FP) PO SCH (10:03)
[2017-03-28] MEDS ORDERED: COLLOIDAL OATMEAL 1 BAR EACH TP PRN (15:30)
[2017-03-28] MEDS: THIAMINE HCL 100 MG TABLET (FP) PO SCH (21:29)
[2017-03-28] MEDS: QUEtiapine FUMARATE 100 MG TABLET (FP) PO SCH (21:29)
[2017-03-28] MEDS: ACETAMINOPHEN 325 MG TABLET (FP) PO PRN (21:29)
[2017-03-29] MEDS ORDERED: METHADONE HCL 40 MG DISPERSABLE TABLET ONE (04:18)
[2017-03-29] MEDS ORDERED: METHADONE HCL 10 MG TABLET ONE (04:18)
[2017-03-29] MEDS ORDERED: METHADONE HCL 10 MG TABLET PO ONE (06:00)
[2017-03-29] MEDS: METHADONE 80 MG, METHADONE 20 MG PO SCH (06:23)
[2017-03-29] MEDS: SERTRALINE HCL 50 MG TABLET (FP) PO SCH (10:09)
[2017-03-29] MEDS: PRENATAL VITAMINS W/ FOLIC ACID TABLET (FP) PO SCH (10:09)
[2017-03-29] MEDS: hydrOXYzine PAMOATE 50 MG CAPSULE (FP) PO PRN ×2 (10:09→21:08)
[2017-03-29] MEDS: ACETAMINOPHEN 325 MG TABLET (FP) PO PRN ×2 (10:09→21:08)
[2017-03-29] MEDS: NICOTINE 21 MG/24 HOURS TOPICAL PATCH TD SCH (10:10)
[2017-03-29] MEDS: NICOTINE POLACRILEX 4 MG GUM BUC PRN ×4 (10:11→21:09)
[2017-03-29] MEDS: THIAMINE HCL 100 MG TABLET (FP) PO SCH (21:08)
[2017-03-29] MEDS: QUEtiapine FUMARATE 100 MG TABLET (FP) PO SCH (21:08)
[2017-03-30] MEDS ORDERED: METHADONE HCL 10 MG TABLET ONE (04:13)
[2017-03-30] MEDS ORDERED: METHADONE HCL 40 MG DISPERSABLE TABLET ONE (04:14)
[2017-03-30] MEDS ORDERED: METHADONE HCL 10 MG TABLET PO ONE (06:00)
[2017-03-30] MEDS: METHADONE 80 MG, METHADONE 20 MG PO SCH (06:17)
[2017-03-30] MEDS: NICOTINE POLACRILEX 4 MG GUM BUC PRN ×3 (06:37→17:11)
[2017-03-30] MEDS: ACETAMINOPHEN 325 MG TABLET (FP) PO PRN ×2 (06:37→17:10)
[2017-03-30] MEDS: SERTRALINE HCL 50 MG TABLET (FP) PO SCH (10:16)
[2017-03-30] MEDS: NICOTINE 21 MG/24 HOURS TOPICAL PATCH TD SCH (10:16)
[2017-03-30] MEDS: PRENATAL VITAMINS W/ FOLIC ACID TABLET (FP) PO SCH (10:16)
[2017-03-30] MEDS: CYCLOBENZAPRINE HCL 10 MG TABLET (FP) PO PRN (17:10)
[2017-03-30] MEDS: hydrOXYzine PAMOATE 50 MG CAPSULE (FP) PO PRN ×2 (17:10→21:17)
--- NOTE | 2017-03-30 17:59 | PN ---
[facility] Progress Note Note: ASSESSED THE PT ON THE UNIT. HE ATE MASHED POTATOES THAT HAD A STRIP OF ALUMINUM IN IT. HE SCRATCHED THE ROOF OF HIS MOUTH. NO BLEEDING NOTED AND HE DENIED PAIN. VSS; WILL CONTINUE TO MONITOR.
[2017-03-30] MEDS: QUEtiapine FUMARATE 100 MG TABLET (FP) PO SCH (21:17)
[2017-03-30] MEDS: NAPROXEN 500 MG TABLET (FP) PO SCH (21:17)
[2017-03-30] MEDS: THIAMINE HCL 100 MG TABLET (FP) PO SCH (21:17)
[2017-03-31] MEDS ORDERED: METHADONE HCL 10 MG TABLET ONE (04:08)
[2017-03-31] MEDS ORDERED: METHADONE HCL 40 MG DISPERSABLE TABLET ONE (04:09)
[2017-03-31] MEDS ORDERED: METHADONE HCL 10 MG TABLET PO ONE (06:00)
[2017-03-31] MEDS: METHADONE 80 MG, METHADONE 30 MG PO SCH (06:11)
[2017-03-31] MEDS: hydrOXYzine PAMOATE 50 MG CAPSULE (FP) PO PRN ×2 (06:14→21:54)
[2017-03-31] MEDS: NICOTINE POLACRILEX 4 MG GUM BUC PRN ×3 (06:14→21:54)
[2017-03-31] MEDS: CYCLOBENZAPRINE HCL 10 MG TABLET (FP) PO PRN ×2 (06:14→21:54)
[2017-03-31] MEDS: SERTRALINE HCL 50 MG TABLET (FP) PO SCH (10:09)
[2017-03-31] MEDS: PRENATAL VITAMINS W/ FOLIC ACID TABLET (FP) PO SCH (10:09)
[2017-03-31] MEDS: NAPROXEN 500 MG TABLET (FP) PO SCH ×2 (10:09→21:55)
[2017-03-31] MEDS: NICOTINE 21 MG/24 HOURS TOPICAL PATCH TD SCH (10:09)
--- NOTE | 2017-03-31 15:39 | PN ---
[facility] Progress Note Note: According to note from FOOD SERVICE MANAGER she saw pt. yesterday because of a piece of metal that scratched the roof of his mouth while eating. Pt. is not sure about recent tetanus immunization. P : tetanus toxoid .5ml IM once
[2017-03-31] MEDS ORDERED: TETANUS IMMUNE GLOBULIN 250 UNITS DISP.SYRIN IM ONE (21:00)
[2017-03-31] MEDS: THIAMINE HCL 100 MG TABLET (FP) PO SCH (21:54)
[2017-03-31] MEDS: QUEtiapine FUMARATE 100 MG TABLET (FP) PO SCH (21:54)
[2017-04-01] MEDS ORDERED: METHADONE HCL 40 MG DISPERSABLE TABLET ONE (04:18)
[2017-04-01] MEDS ORDERED: METHADONE HCL 10 MG TABLET ONE (04:18)
[2017-04-01] MEDS ORDERED: METHADONE HCL 10 MG TABLET PO ONE (06:00)
[2017-04-01] MEDS: METHADONE 80 MG, METHADONE 30 MG PO SCH (06:20)
[2017-04-01] MEDS ORDERED: TETANUS AND DIPHTHERIA TOXOID 0.5 ML DISP.SYRIN IM ONE ×2 (07:30→13:30)
[2017-04-01] MEDS: NICOTINE 21 MG/24 HOURS TOPICAL PATCH TD SCH (10:10)
[2017-04-01] MEDS: PRENATAL VITAMINS W/ FOLIC ACID TABLET (FP) PO SCH (10:10)
[2017-04-01] MEDS: hydrOXYzine PAMOATE 50 MG CAPSULE (FP) PO PRN ×2 (10:10→21:21)
[2017-04-01] MEDS: NAPROXEN 500 MG TABLET (FP) PO SCH ×2 (10:10→21:21)
[2017-04-01] MEDS: SERTRALINE HCL 50 MG TABLET (FP) PO SCH (10:11)
[2017-04-01] MEDS: NICOTINE POLACRILEX 4 MG GUM BUC PRN ×2 (10:14→20:32)
[2017-04-01] MEDS: HYDROCORTISONE 1% TOPICAL CREAM 30 GM TUBE TP PRN (10:14)
[2017-04-01] MEDS ORDERED: QUEtiapine FUMARATE 50 MG TABLET ONE (19:59)
[2017-04-01] MEDS: THIAMINE HCL 100 MG TABLET (FP) PO SCH (21:20)
[2017-04-01] MEDS: CYCLOBENZAPRINE HCL 10 MG TABLET (FP) PO PRN (21:21)
[2017-04-01] MEDS: QUEtiapine FUMARATE 100 MG TABLET (FP) PO SCH (21:21)
[2017-04-02] MEDS: METHADONE HCL 40 MG DISPERSABLE TABLET PO SCH (06:03)
[2017-04-02] MEDS: NICOTINE POLACRILEX 4 MG GUM BUC PRN ×2 (08:43→12:39)
[2017-04-02] MEDS: NICOTINE 21 MG/24 HOURS TOPICAL PATCH TD SCH (10:18)
[2017-04-02] MEDS: SERTRALINE HCL 50 MG TABLET (FP) PO SCH (10:18)
[2017-04-02] MEDS: NAPROXEN 500 MG TABLET (FP) PO SCH ×2 (10:19→21:23)
[2017-04-02] MEDS: PRENATAL VITAMINS W/ FOLIC ACID TABLET (FP) PO SCH (10:19)
[2017-04-02] MEDS: CYCLOBENZAPRINE HCL 10 MG TABLET (FP) PO PRN ×2 (10:20→21:25)
[2017-04-02] MEDS: THIAMINE HCL 100 MG TABLET (FP) PO SCH (21:23)
[2017-04-02] MEDS: QUEtiapine FUMARATE 100 MG TABLET (FP) PO SCH (21:23)
[2017-04-02] MEDS: hydrOXYzine PAMOATE 50 MG CAPSULE (FP) PO PRN (21:25)
[2017-04-03] MEDS ORDERED: METHADONE HCL 10 MG TABLET PO ONE (06:00)
[2017-04-03] MEDS: METHADONE HCL 40 MG DISPERSABLE TABLET PO SCH (06:26)
[2017-04-03] MEDS: NICOTINE POLACRILEX 4 MG GUM BUC PRN ×4 (06:29→21:42)
[2017-04-03] MEDS: NAPROXEN 500 MG TABLET (FP) PO SCH ×2 (10:07→21:42)
[2017-04-03] MEDS: PRENATAL VITAMINS W/ FOLIC ACID TABLET (FP) PO SCH (10:07)
[2017-04-03] MEDS: SERTRALINE HCL 50 MG TABLET (FP) PO SCH (10:08)
[2017-04-03] MEDS: NICOTINE 21 MG/24 HOURS TOPICAL PATCH TD SCH (10:08)
[2017-04-03] MEDS: CYCLOBENZAPRINE HCL 10 MG TABLET (FP) PO PRN ×2 (10:09→21:42)
[2017-04-03] MEDS: hydrOXYzine PAMOATE 50 MG CAPSULE (FP) PO PRN ×2 (10:09→21:42)
[2017-04-03] MEDS: THIAMINE HCL 100 MG TABLET (FP) PO SCH (21:41)
[2017-04-03] MEDS: QUEtiapine FUMARATE 100 MG TABLET (FP) PO SCH (21:42)
[2017-04-03] MEDS: HYDROCORTISONE 1% TOPICAL CREAM 30 GM TUBE TP PRN (21:43)
[2017-04-04] MEDS ORDERED: METHADONE HCL 10 MG TABLET ONE (05:00)
[2017-04-04] MEDS ORDERED: METHADONE HCL 40 MG DISPERSABLE TABLET ONE (05:00)
[2017-04-04] MEDS ORDERED: METHADONE HCL 10 MG TABLET PO SCH (06:00)
[2017-04-04] MEDS: METHADONE 120 MG, METHADONE 10 MG PO SCH (06:10)
[2017-04-04] MEDS: hydrOXYzine PAMOATE 50 MG CAPSULE (FP) PO PRN ×2 (09:10→21:49)
[2017-04-04] MEDS: NAPROXEN 500 MG TABLET (FP) PO SCH ×2 (09:12→21:49)
[2017-04-04] MEDS: NICOTINE 21 MG/24 HOURS TOPICAL PATCH TD SCH (09:12)
[2017-04-04] MEDS: PRENATAL VITAMINS W/ FOLIC ACID TABLET (FP) PO SCH (09:12)
[2017-04-04] MEDS: SERTRALINE HCL 50 MG TABLET (FP) PO SCH (09:13)
[2017-04-04] MEDS: NICOTINE POLACRILEX 4 MG GUM BUC PRN ×2 (14:40→21:49)
[2017-04-04] MEDS: THIAMINE HCL 100 MG TABLET (FP) PO SCH (21:48)
[2017-04-04] MEDS: CYCLOBENZAPRINE HCL 10 MG TABLET (FP) PO PRN (21:48)
[2017-04-04] MEDS: QUEtiapine FUMARATE 100 MG TABLET (FP) PO SCH (21:49)
[2017-04-05] MEDS ORDERED: METHADONE HCL 40 MG DISPERSABLE TABLET ONE (02:40)
[2017-04-05] MEDS ORDERED: METHADONE HCL 10 MG TABLET ONE (02:40)
[2017-04-05] MEDS: hydrOXYzine PAMOATE 50 MG CAPSULE (FP) PO PRN ×2 (06:14→21:35)
[2017-04-05] MEDS: CYCLOBENZAPRINE HCL 10 MG TABLET (FP) PO PRN ×2 (06:15→21:35)
[2017-04-05] MEDS: METHADONE 120 MG, METHADONE 10 MG PO SCH (06:17)
[2017-04-05] MEDS: NICOTINE POLACRILEX 4 MG GUM BUC PRN ×3 (06:17→21:36)
[2017-04-05] MEDS: PRENATAL VITAMINS W/ FOLIC ACID TABLET (FP) PO SCH (10:20)
[2017-04-05] MEDS: NICOTINE 21 MG/24 HOURS TOPICAL PATCH TD SCH (10:20)
[2017-04-05] MEDS: NAPROXEN 500 MG TABLET (FP) PO SCH ×2 (10:20→21:36)
[2017-04-05] MEDS: SERTRALINE HCL 50 MG TABLET (FP) PO SCH (10:20)
[2017-04-05] MEDS: THIAMINE HCL 100 MG TABLET (FP) PO SCH (21:35)
[2017-04-05] MEDS: QUEtiapine FUMARATE 100 MG TABLET (FP) PO SCH (21:35)
[2017-04-06] MEDS ORDERED: METHADONE HCL 10 MG TABLET ONE (03:13)
[2017-04-06] MEDS ORDERED: METHADONE HCL 40 MG DISPERSABLE TABLET ONE (03:13)
[2017-04-06] MEDS: METHADONE 120 MG, METHADONE 10 MG PO SCH (06:29)
[2017-04-06] MEDS: SERTRALINE HCL 50 MG TABLET (FP) PO SCH (09:54)
[2017-04-06] MEDS: NAPROXEN 500 MG TABLET (FP) PO SCH ×2 (09:54→22:45)
[2017-04-06] MEDS: PRENATAL VITAMINS W/ FOLIC ACID TABLET (FP) PO SCH (09:55)
[2017-04-06] MEDS: NICOTINE 21 MG/24 HOURS TOPICAL PATCH TD SCH (09:55)
[2017-04-06] MEDS: NICOTINE POLACRILEX 4 MG GUM BUC PRN ×2 (09:57→21:22)
[2017-04-06] MEDS: QUEtiapine FUMARATE 100 MG TABLET (FP) PO SCH (21:22)
[2017-04-06] MEDS: CYCLOBENZAPRINE HCL 10 MG TABLET (FP) PO PRN (21:22)
[2017-04-06] MEDS: hydrOXYzine PAMOATE 50 MG CAPSULE (FP) PO PRN (21:22)
[2017-04-06] MEDS: THIAMINE HCL 100 MG TABLET (FP) PO SCH (21:22)
[2017-04-07] MEDS ORDERED: METHADONE HCL 10 MG TABLET ONE (05:14)
[2017-04-07] MEDS ORDERED: METHADONE HCL 40 MG DISPERSABLE TABLET ONE (05:14)
[2017-04-07] MEDS: METHADONE 120 MG, METHADONE 10 MG PO SCH (06:19)
[2017-04-07] MEDS: NICOTINE POLACRILEX 4 MG GUM BUC PRN ×3 (08:55→21:30)
[2017-04-07] MEDS: PRENATAL VITAMINS W/ FOLIC ACID TABLET (FP) PO SCH (09:46)
[2017-04-07] MEDS: SERTRALINE HCL 50 MG TABLET (FP) PO SCH (09:46)
[2017-04-07] MEDS: HYDROCORTISONE 1% TOPICAL CREAM 30 GM TUBE TP PRN (09:47)
[2017-04-07] MEDS: NICOTINE 21 MG/24 HOURS TOPICAL PATCH TD SCH (09:47)
[2017-04-07] MEDS: NAPROXEN 500 MG TABLET (FP) PO SCH ×2 (10:14→21:28)
[2017-04-07] MEDS: THIAMINE HCL 100 MG TABLET (FP) PO SCH (21:26)
[2017-04-07] MEDS: QUEtiapine FUMARATE 100 MG TABLET (FP) PO SCH (21:27)
[2017-04-07] MEDS: CYCLOBENZAPRINE HCL 10 MG TABLET (FP) PO PRN (21:27)
[2017-04-07] MEDS: hydrOXYzine PAMOATE 50 MG CAPSULE (FP) PO PRN (21:28)
[2017-04-08] MEDS ORDERED: METHADONE HCL 40 MG DISPERSABLE TABLET ONE (04:48)
[2017-04-08] MEDS ORDERED: METHADONE HCL 10 MG TABLET ONE (04:48)
[2017-04-08] MEDS: METHADONE 120 MG, METHADONE 10 MG PO SCH (06:33)
[2017-04-08] MEDS: HYDROCORTISONE 1% TOPICAL CREAM 30 GM TUBE TP PRN (09:53)
[2017-04-08] MEDS: NICOTINE 21 MG/24 HOURS TOPICAL PATCH TD SCH (09:53)
[2017-04-08] MEDS: SERTRALINE HCL 50 MG TABLET (FP) PO SCH (09:53)
[2017-04-08] MEDS: NAPROXEN 500 MG TABLET (FP) PO SCH ×2 (09:53→21:08)
[2017-04-08] MEDS: PRENATAL VITAMINS W/ FOLIC ACID TABLET (FP) PO SCH (09:53)
[2017-04-08] MEDS: hydrOXYzine PAMOATE 50 MG CAPSULE (FP) PO PRN ×2 (09:54→21:10)
[2017-04-08] MEDS: CYCLOBENZAPRINE HCL 10 MG TABLET (FP) PO PRN ×2 (09:55→21:10)
[2017-04-08] MEDS: QUEtiapine FUMARATE 100 MG TABLET (FP) PO SCH (21:08)
[2017-04-08] MEDS: THIAMINE HCL 100 MG TABLET (FP) PO SCH (21:08)
[2017-04-08] MEDS: NICOTINE POLACRILEX 4 MG GUM BUC PRN (21:10)
[2017-04-09] MEDS: METHADONE 120 MG, METHADONE 10 MG PO SCH (06:13)
[2017-04-09] MEDS ORDERED: METHADONE HCL 40 MG DISPERSABLE TABLET ONE (06:13)
[2017-04-09] MEDS ORDERED: METHADONE HCL 10 MG TABLET ONE (06:13)
[2017-04-09] MEDS: NAPROXEN 500 MG TABLET (FP) PO SCH ×2 (10:10→21:46)
[2017-04-09] MEDS: PRENATAL VITAMINS W/ FOLIC ACID TABLET (FP) PO SCH (10:10)
[2017-04-09] MEDS: SERTRALINE HCL 50 MG TABLET (FP) PO SCH (10:10)
[2017-04-09] MEDS: NICOTINE 21 MG/24 HOURS TOPICAL PATCH TD SCH (10:11)
[2017-04-09] MEDS: hydrOXYzine PAMOATE 50 MG CAPSULE (FP) PO PRN ×2 (10:12→21:48)
[2017-04-09] MEDS: NICOTINE POLACRILEX 4 MG GUM BUC PRN (10:13)
[2017-04-09] MEDS: QUEtiapine FUMARATE 100 MG TABLET (FP) PO SCH (21:46)
[2017-04-09] MEDS: THIAMINE HCL 100 MG TABLET (FP) PO SCH (21:46)
[2017-04-09] MEDS: CYCLOBENZAPRINE HCL 10 MG TABLET (FP) PO PRN (21:48)
[2017-04-10] MEDS ORDERED: METHADONE HCL 40 MG DISPERSABLE TABLET ONE (04:05)
[2017-04-10] MEDS ORDERED: METHADONE HCL 10 MG TABLET ONE (04:05)
[2017-04-10] MEDS: METHADONE 120 MG, METHADONE 10 MG PO SCH (06:23)
[2017-04-10] MEDS: NICOTINE POLACRILEX 4 MG GUM BUC PRN (07:59)
[2017-04-10] MEDS: NAPROXEN 500 MG TABLET (FP) PO SCH ×2 (09:53→21:36)
[2017-04-10] MEDS: NICOTINE 21 MG/24 HOURS TOPICAL PATCH TD SCH (09:53)
[2017-04-10] MEDS: PRENATAL VITAMINS W/ FOLIC ACID TABLET (FP) PO SCH (09:53)
[2017-04-10] MEDS: SERTRALINE HCL 50 MG TABLET (FP) PO SCH (09:53)
[2017-04-10] MEDS: CYCLOBENZAPRINE HCL 10 MG TABLET (FP) PO PRN ×2 (09:54→21:36)
[2017-04-10] MEDS: hydrOXYzine PAMOATE 50 MG CAPSULE (FP) PO PRN ×2 (09:54→21:37)
[2017-04-10] MEDS: THIAMINE HCL 100 MG TABLET (FP) PO SCH (21:36)
[2017-04-10] MEDS: QUEtiapine FUMARATE 100 MG TABLET (FP) PO SCH (21:36)
[2017-04-11] MEDS ORDERED: METHADONE HCL 10 MG TABLET ONE (05:13)
[2017-04-11] MEDS ORDERED: METHADONE HCL 40 MG DISPERSABLE TABLET ONE (05:14)
[2017-04-11] MEDS: METHADONE 120 MG, METHADONE 10 MG PO SCH (06:26)
[2017-04-11] MEDS: SERTRALINE HCL 50 MG TABLET (FP) PO SCH (10:02)
[2017-04-11] MEDS: PRENATAL VITAMINS W/ FOLIC ACID TABLET (FP) PO SCH (10:02)
[2017-04-11] MEDS: NICOTINE 21 MG/24 HOURS TOPICAL PATCH TD SCH (10:02)
[2017-04-11] MEDS: NAPROXEN 500 MG TABLET (FP) PO SCH ×2 (10:02→21:43)
[2017-04-11] MEDS: hydrOXYzine PAMOATE 50 MG CAPSULE (FP) PO PRN ×2 (10:03→21:43)
[2017-04-11] MEDS: NICOTINE POLACRILEX 4 MG GUM BUC PRN ×2 (10:04→21:44)
[2017-04-11] MEDS: CYCLOBENZAPRINE HCL 10 MG TABLET (FP) PO PRN (21:43)
[2017-04-11] MEDS: THIAMINE HCL 100 MG TABLET (FP) PO SCH (21:43)
[2017-04-11] MEDS: QUEtiapine FUMARATE 100 MG TABLET (FP) PO SCH (21:44)
[2017-04-12] MEDS ORDERED: METHADONE HCL 40 MG DISPERSABLE TABLET ONE (03:45)
[2017-04-12] MEDS ORDERED: METHADONE HCL 10 MG TABLET ONE (03:45)
[2017-04-12] MEDS: METHADONE 120 MG, METHADONE 10 MG PO SCH (06:19)
[2017-04-12] MEDS: SERTRALINE HCL 50 MG TABLET (FP) PO SCH (10:11)
[2017-04-12] MEDS: NICOTINE POLACRILEX 4 MG GUM BUC PRN ×3 (10:11→22:01)
[2017-04-12] MEDS: NICOTINE 21 MG/24 HOURS TOPICAL PATCH TD SCH (10:11)
[2017-04-12] MEDS: PRENATAL VITAMINS W/ FOLIC ACID TABLET (FP) PO SCH (10:11)
[2017-04-12] MEDS: NAPROXEN 500 MG TABLET (FP) PO SCH ×2 (10:11→21:59)
[2017-04-12] MEDS: CYCLOBENZAPRINE HCL 10 MG TABLET (FP) PO PRN ×2 (10:12→22:01)
[2017-04-12] MEDS: hydrOXYzine PAMOATE 50 MG CAPSULE (FP) PO PRN ×2 (10:12→22:01)
[2017-04-12] MEDS: THIAMINE HCL 100 MG TABLET (FP) PO SCH (21:59)
[2017-04-12] MEDS: QUEtiapine FUMARATE 100 MG TABLET (FP) PO SCH (21:59)
[2017-04-13] MEDS ORDERED: METHADONE HCL 10 MG TABLET ONE (05:39)
[2017-04-13] MEDS ORDERED: METHADONE HCL 40 MG DISPERSABLE TABLET ONE (05:40)
[2017-04-13] MEDS: METHADONE 120 MG, METHADONE 10 MG PO SCH (06:15)
[2017-04-13] MEDS: HYDROCORTISONE 1% TOPICAL CREAM 30 GM TUBE TP PRN (10:04)
[2017-04-13] MEDS: PRENATAL VITAMINS W/ FOLIC ACID TABLET (FP) PO SCH (10:04)
[2017-04-13] MEDS: NICOTINE 21 MG/24 HOURS TOPICAL PATCH TD SCH (10:05)
[2017-04-13] MEDS: hydrOXYzine PAMOATE 50 MG CAPSULE (FP) PO PRN ×2 (10:05→21:37)
[2017-04-13] MEDS: SERTRALINE HCL 50 MG TABLET (FP) PO SCH (10:05)
[2017-04-13] MEDS: NAPROXEN 500 MG TABLET (FP) PO SCH ×2 (10:05→21:37)
[2017-04-13] MEDS: NICOTINE POLACRILEX 4 MG GUM BUC PRN (10:06)
[2017-04-13] MEDS: QUEtiapine FUMARATE 100 MG TABLET (FP) PO SCH (21:37)
[2017-04-13] MEDS: THIAMINE HCL 100 MG TABLET (FP) PO SCH (21:37)
[2017-04-13] MEDS: CYCLOBENZAPRINE HCL 10 MG TABLET (FP) PO PRN (21:39)
[2017-04-14] MEDS: METHADONE 120 MG, METHADONE 10 MG PO SCH (06:24)
[2017-04-14] MEDS ORDERED: METHADONE HCL 40 MG DISPERSABLE TABLET ONE (06:24)
[2017-04-14] MEDS ORDERED: METHADONE HCL 10 MG TABLET ONE (06:24)
[2017-04-14] MEDS: SERTRALINE HCL 50 MG TABLET (FP) PO SCH (10:12)
[2017-04-14] MEDS: PRENATAL VITAMINS W/ FOLIC ACID TABLET (FP) PO SCH (10:12)
[2017-04-14] MEDS: NICOTINE 21 MG/24 HOURS TOPICAL PATCH TD SCH (10:12)
[2017-04-14] MEDS: hydrOXYzine PAMOATE 50 MG CAPSULE (FP) PO PRN ×2 (10:13→21:37)
[2017-04-14] MEDS: NAPROXEN 500 MG TABLET (FP) PO SCH ×2 (10:41→21:37)
[2017-04-14] MEDS: THIAMINE HCL 100 MG TABLET (FP) PO SCH (21:37)
[2017-04-14] MEDS: QUEtiapine FUMARATE 100 MG TABLET (FP) PO SCH (21:37)
[2017-04-14] MEDS: CYCLOBENZAPRINE HCL 10 MG TABLET (FP) PO PRN (21:37)
[2017-04-15] MEDS ORDERED: METHADONE HCL 10 MG TABLET ONE (05:01)
[2017-04-15] MEDS ORDERED: METHADONE HCL 40 MG DISPERSABLE TABLET ONE (05:01)
[2017-04-15] MEDS: METHADONE 120 MG, METHADONE 10 MG PO SCH (06:07)
[2017-04-15] MEDS: NICOTINE POLACRILEX 4 MG GUM BUC PRN ×2 (08:23→12:08)
[2017-04-15] MEDS: NAPROXEN 500 MG TABLET (FP) PO SCH ×2 (10:07→21:07)
[2017-04-15] MEDS: NICOTINE 21 MG/24 HOURS TOPICAL PATCH TD SCH (10:07)
[2017-04-15] MEDS: PRENATAL VITAMINS W/ FOLIC ACID TABLET (FP) PO SCH (10:07)
[2017-04-15] MEDS: hydrOXYzine PAMOATE 50 MG CAPSULE (FP) PO PRN ×2 (10:07→21:07)
[2017-04-15] MEDS: SERTRALINE HCL 50 MG TABLET (FP) PO SCH (10:07)
[2017-04-15] MEDS: THIAMINE HCL 100 MG TABLET (FP) PO SCH (21:07)
[2017-04-15] MEDS: QUEtiapine FUMARATE 100 MG TABLET (FP) PO SCH (21:07)
[2017-04-15] MEDS: CYCLOBENZAPRINE HCL 10 MG TABLET (FP) PO PRN (21:07)
[2017-04-16] MEDS ORDERED: METHADONE HCL 40 MG DISPERSABLE TABLET ONE (05:18)
[2017-04-16] MEDS ORDERED: METHADONE HCL 10 MG TABLET ONE (05:18)
[2017-04-16] MEDS: METHADONE 120 MG, METHADONE 10 MG PO SCH (06:01)
[2017-04-16] MEDS: SERTRALINE HCL 50 MG TABLET (FP) PO SCH (10:00)
[2017-04-16] MEDS: PRENATAL VITAMINS W/ FOLIC ACID TABLET (FP) PO SCH (10:00)
[2017-04-16] MEDS: hydrOXYzine PAMOATE 50 MG CAPSULE (FP) PO PRN ×2 (10:01→21:43)
[2017-04-16] MEDS: NICOTINE POLACRILEX 4 MG GUM BUC PRN ×2 (10:01→21:48)
[2017-04-16] MEDS: NICOTINE 21 MG/24 HOURS TOPICAL PATCH TD SCH (10:01)
[2017-04-16] MEDS: NAPROXEN 500 MG TABLET (FP) PO SCH ×2 (10:01→21:42)
[2017-04-16] MEDS: CYCLOBENZAPRINE HCL 10 MG TABLET (FP) PO PRN ×2 (10:01→21:43)
[2017-04-16] MEDS: THIAMINE HCL 100 MG TABLET (FP) PO SCH (21:42)
[2017-04-16] MEDS: QUEtiapine FUMARATE 100 MG TABLET (FP) PO SCH (21:43)
[2017-04-17] MEDS ORDERED: METHADONE HCL 10 MG TABLET ONE (03:54)
[2017-04-17] MEDS ORDERED: METHADONE HCL 40 MG DISPERSABLE TABLET ONE (03:54)
[2017-04-17] MEDS: METHADONE 120 MG, METHADONE 10 MG PO SCH (06:14)
[2017-04-17] MEDS: SERTRALINE HCL 50 MG TABLET (FP) PO SCH (10:13)
[2017-04-17] MEDS: NICOTINE 21 MG/24 HOURS TOPICAL PATCH TD SCH (10:13)
[2017-04-17] MEDS: hydrOXYzine PAMOATE 50 MG CAPSULE (FP) PO PRN ×2 (10:13→21:05)
[2017-04-17] MEDS: HYDROCORTISONE 1% TOPICAL CREAM 30 GM TUBE TP PRN (10:13)
[2017-04-17] MEDS: PRENATAL VITAMINS W/ FOLIC ACID TABLET (FP) PO SCH (10:13)
[2017-04-17] MEDS: NAPROXEN 500 MG TABLET (FP) PO SCH ×2 (10:14→21:03)
[2017-04-17] MEDS: NICOTINE POLACRILEX 4 MG GUM BUC PRN ×2 (12:38→21:06)
[2017-04-17] MEDS: THIAMINE HCL 100 MG TABLET (FP) PO SCH (21:03)
[2017-04-17] MEDS: QUEtiapine FUMARATE 100 MG TABLET (FP) PO SCH (21:03)
[2017-04-17] MEDS: CYCLOBENZAPRINE HCL 10 MG TABLET (FP) PO PRN (21:05)
[2017-04-18] MEDS ORDERED: METHADONE HCL 40 MG DISPERSABLE TABLET ONE (05:06)
[2017-04-18] MEDS ORDERED: METHADONE HCL 10 MG TABLET ONE (05:06)
[2017-04-18] MEDS: METHADONE 120 MG, METHADONE 10 MG PO SCH (06:14)
[2017-04-18] MEDS: NICOTINE POLACRILEX 4 MG GUM BUC PRN ×3 (06:17→21:09)
[2017-04-18] MEDS: PRENATAL VITAMINS W/ FOLIC ACID TABLET (FP) PO SCH (09:59)
[2017-04-18] MEDS: SERTRALINE HCL 50 MG TABLET (FP) PO SCH (09:59)
[2017-04-18] MEDS: hydrOXYzine PAMOATE 50 MG CAPSULE (FP) PO PRN ×2 (10:00→21:08)
[2017-04-18] MEDS: NAPROXEN 500 MG TABLET (FP) PO SCH ×2 (10:01→21:08)
[2017-04-18] MEDS: NICOTINE 21 MG/24 HOURS TOPICAL PATCH TD SCH (10:01)
[2017-04-18] MEDS: QUEtiapine FUMARATE 100 MG TABLET (FP) PO SCH (21:08)
[2017-04-18] MEDS: CYCLOBENZAPRINE HCL 10 MG TABLET (FP) PO PRN (21:08)
[2017-04-18] MEDS: THIAMINE HCL 100 MG TABLET (FP) PO SCH (21:08)
[2017-04-19] MEDS ORDERED: METHADONE HCL 40 MG DISPERSABLE TABLET ONE (04:35)
[2017-04-19] MEDS ORDERED: METHADONE HCL 10 MG TABLET ONE (04:35)
[2017-04-19] MEDS: METHADONE 120 MG, METHADONE 10 MG PO SCH (06:02)
[2017-04-19] MEDS: NICOTINE POLACRILEX 4 MG GUM BUC PRN ×3 (06:03→21:13)
[2017-04-19] MEDS: hydrOXYzine PAMOATE 50 MG CAPSULE (FP) PO PRN ×2 (10:07→21:14)
[2017-04-19] MEDS: NICOTINE 21 MG/24 HOURS TOPICAL PATCH TD SCH (10:07)
[2017-04-19] MEDS: PRENATAL VITAMINS W/ FOLIC ACID TABLET (FP) PO SCH (10:07)
[2017-04-19] MEDS: NAPROXEN 500 MG TABLET (FP) PO SCH ×2 (10:07→21:11)
[2017-04-19] MEDS: SERTRALINE HCL 50 MG TABLET (FP) PO SCH (10:07)
--- NOTE | 2017-04-19 11:30 | PN ---
Psychiatric Progress Note Vital Signs: Vital Signs Period Temp Pulse Resp BP Sys/Bird Pulse Ox Last 24 Hr 98.3 F 93 18-20 111/73 Date of Session: 04/19/17 Chief Complaint:: Discharge Note HPI: Patient addressing Opoid Dependence comorbid with Opoid Dependence on Agonist Therapy, Depressive Disorder and Substance-induced Mood Disorder Current Medications: Active Medications Generic Name Dose Route Start Last Admin Trade Name Freq PRN Reason Stop Dose Admin Acetaminophen 650 mg 03/23/17 12:53 03/30/17 17:10 Tylenol - PO 650 mg Q4H PRN Administration PAIN Al Hydroxide/Mg Hydroxide 30 ml 03/23/17 12:53 04/13/17 14:48 Mylanta Oral Suspension - PO 30 ml Q6H PRN Administration DYSPEPSIA Colloidal Oatmeal 1 applic 03/28/17 15:30 04/07/17 09:49 Aveeno Soap - TP 1 applic DAILY PRN Administration HYGEINE Cyclobenzaprine HCl 10 mg 03/30/17 15:51 04/18/17 21:08 Flexeril - PO 10 mg TID PRN Administration MUSCLE SPASMS Eucalyptus/Menthol/Phenol/Sorbitol 1 each 03/23/17 12:53 Cepastat Lozenge - MM Q4H PRN SORE THROAT Guaifenesin 10 ml 03/23/17 12:53 Robitussin Dm - PO Q6H PRN COUGH Hydrocortisone 1 applic 03/31/17 22:53 04/17/17 10:13 Hytone 1% Cream - TP 1 applic BID PRN Administration FOR ITCHING Hydroxyzine Pamoate 50 mg 03/26/17 10:41 04/19/17 10:07 Vistaril - PO 50 mg Q4H PRN Administration ANXIETY Loperamide HCl 4 mg 03/23/17 12:53 Imodium - PO Q6H PRN DIARRHEA Magnesium Citrate 300 ml 03/23/17 12:53 Citroma - PO Q48H PRN CONSTIPATION Magnesium Hydroxide 30 ml 03/23/17 12:53 Milk Of Magnesia - PO DAILY PRN CONSTIPATION Methadone HCl 120 mg/ 130 mg 04/18/17 06:00 04/19/17 06:02 Methadone HCl 10 mg PO 04/25/17 05:59 130 mg DAILY@0600 ANTONY Administration Naproxen 500 mg 03/30/17 22:00 04/19/17 10:07 Naprosyn - PO Not Given BID ANTONY Nicotine 21 mg 03/23/17 14:00 04/19/17 10:07 Nicoderm Patch - TD 21 mg DAILY ANTONY Administration Nicotine Polacrilex 4 mg 03/23/17 12:53 04/19/17 10:07 Nicorette Gum - BUC 4 mg Q2H PRN Administration NICOTINE REPLACEMENT RX Multivit/Folic Acid/Iron 1 tab 03/24/17 10:00 04/19/17 10:07 Vitamins (Sjr) - PO 1 tab DAILY ANTONY Administration Pseudoephedrine/Triprolidine 1 combo 03/23/17 12:53 Actifed - PO TID PRN NASAL CONGESTION Quetiapine Fumarate 100 mg 03/26/17 22:00 04/18/17 21:08 Seroquel - PO 100 mg HS ANTONY Administration Sertraline HCl 100 mg 03/24/17 10:00 04/19/17 10:07 Zoloft - PO 100 mg DAILY ANTONY Administration Thiamine HCl 100 mg 03/23/17 22:00 04/18/17 21:08 Vitamin B1 - PO 100 mg HS ANTONY Administration Current Side Effect: No Lab tests ordered: Yes Lab tests reviewed: Yes Provider note:: Patient will complete this program on 04/20/17. 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 He verbalized understanding of the negative consequences of his addiction and from his participation in this program, he has learned to identify his triggers and ways to address them. He responded well to Zoloft 100 mg po daily and Seroquel 100 mg po HS. Scripts for 30 days supply of medications will be electronically transmitted to [facility] at [address] [place] [address]. He is stable for discharge on04/20 Total face to face time:: 35 Mental Status Exam - Mental Status Exam Alert and Oriented to: Time, Place, Person Cognitive Function: Fair Patient Appearance: Well Groomed Mood: Hopeful, Euthymic Affect: Appropriate Patient Behavior: Cooperative Speech Pattern: Clear Voice Loudness: Normal Thought Process: Intact, Goal Oriented Thought Disorder: Not Present Hallucinations: Denies Suicidal Ideation: Denies Homicidal Ideation: Denies Insight/Judgement: Fair Sleep: Fair Appetite: Good Muscle strength/Tone: Normal Gait/Station: Normal Psychiatric Treatment Plan - Problem List (6) Fracture of left femur Initial treatment plan: Patient will be discharged tomorow and referred to [facility] for penitentiary residential treatment
[2017-04-19] MEDS: QUEtiapine FUMARATE 100 MG TABLET (FP) PO SCH (21:11)
[2017-04-19] MEDS: THIAMINE HCL 100 MG TABLET (FP) PO SCH (21:11)
[2017-04-19] MEDS: CYCLOBENZAPRINE HCL 10 MG TABLET (FP) PO PRN (21:12)
[2017-04-20] MEDS ORDERED: METHADONE HCL 10 MG TABLET ONE (04:55)
[2017-04-20] MEDS ORDERED: METHADONE HCL 40 MG DISPERSABLE TABLET ONE (04:55)
[2017-04-20] MEDS: METHADONE 120 MG, METHADONE 10 MG PO SCH (05:52)
[2017-04-20 07:26] VITALS: BP 125/77; PULSE 85; TEMP 98.8
== END 2017-04-20 07:55 | disposition home or self-care (01) | DRG 772 ==
LOC: YASAS 09:48 → Y3W 12:37
PROVIDERS: ADMIT Psychiatry & Neurology Psychiatry; ATTEND Psychiatry & Neurology Psychiatry
PROC: HZ42ZZZ Group Counseling for Substance Abuse Treatment, Cognitive-Behavioral (ICD-10-PCS; principal; 2017-03-23)
DX: F11.23 Opioid dependence with withdrawal (principal); F17.210 Nicotine dependence, cigarettes, uncomplicated; F19.24 Other psychoactive substance dependence with psychoactive substance-induced mood disorder; F39 Unspecified mood [affective] disorder; Z87.81 Personal history of (healed) traumatic fracture
CPT/HCPCS: 36415; 80053; 81003; 81015; 85027; 86593; 93005; 93010

== ENCOUNTER 2018-04-19 12:55 | Inpatient (IN) | payer MEDICARE ==
[2018-04-19 14:11] VITALS: BMI 21.3
--- NOTE | 2018-04-19 17:06 | HP ---
COWS - Scale Resting Pulse: 1= MD 81-100 Sweatin= Chills/Flushing Restless Observation: 1= Difficult to Sit Still Pupil Size: 1= Pupils >than Normal Bone or Joint Aches: 2= Severe Diffuse Aches Runny Nose/ Eye Tearin= Runny Nose/Eyes GI Upset > 30mins: 2= Nausea/Diarrhea Tremor Observation: 1= Tremor [place], Not Seen Yawning Observation: 1= 1-2x During Session Anxiety or Irritability: 1=Feels Anxious/Irritable Goose Flesh Skin: 0=Smooth Skin COWS Score: 13 CIWA Score - Admission Criteria OASAS Guidelines: Admission for Medically Managed Detox: Requires at least one of the followin. CIWA greater than 12 2. Seizures within the past 24 hours 3. Delirium tremens within the past 24 hours 4. Hallucinations within the past 24 hours 5. Acute intervention needed for co occurring medical disorder 6. Acute intervention needed for co occurring psychiatric disorder 7. Severe withdrawal that cannot be handled at a lower level of care (continued vomiting, continued diarrhea, abnormal vital signs) requiring intravenous medication and/or fluids 8. Admission [facility] Chief Complaint: need to stop using heroin 27 yo with no medical problems. Initially had morphine when he was in hospital age 14 for about 2 months for fracture of L femur. Started using pills in high school- age 19- felt "like I can do anything". Then started using heroin about 5 years ago b/c less expensive. Has tried to unsuccessfully stop several times. heroin use: 10-15 bags/day, has narcan at home, one episode of OD- September 2017 Cannabis: once a week no other illicits Was on methadone program May 2017. DUR/ISTOP: no meds Utox: opiates/THC Allergies/Adverse Reactions: Allergies Allergy/AdvReac Type Severity Reaction Status Date / Time No Known Allergies Allergy Verified 04/19/18 17:14 Exam Limitations: No Limitations - Ebola screening Have you traveled outside of the country in the last 21 days: No Have you had contact with anyone from an Ebola affected area: No Have you been sick,other than usual withdrawal symptoms: No Do you have a fever: No - Review of Systems Constitutional: No Symptoms Reported EENT: reports: No Symptoms Reported Respiratory: reports: No Symptoms reported Cardiac: reports: No Symptoms Reported GI: reports: No Symptoms Reported : reports: No Symptoms Reported Musculoskeletal: reports: No Symptoms Reported Integumentary: reports: No Symptoms Reported Neuro: reports: No Symptoms reported Endocrine: reports: No Symptoms Reported Hematology: reports: No Symptoms Reported Psychiatric: reports: No Sypmtoms Reported Other Systems: Reviewed and Negative Patient History - Patient Medical History Hx Anemia: No Hx Asthma: No Hx Chronic Obstructive Pulmonary Disease (COPD): No Hx Cancer: No Hx Cardiac Disorders: No Hx Congestive Heart Failure: No Hx Hypertension: No Hx Hypercholesterolemia: No Hx Pacemaker: No HX Cerebrovascular Accident: No Hx Seizures: No Hx Dementia: No Hx Diabetes: No Hx Gastrointestinal Disorders: No Hx Liver Disease: No Hx Genitourinary Disorders: No Hx Sexually Transmitted Disorders: No Hx Renal Disease (ESRD): No Hx Thyroid Disease: No Hx Human Immunodeficiency Virus (HIV): No (NEGATIVE HX) Hx Hepatitis C: No Hx Depression: Yes (ON MED) Hx Suicide Attempt: No (DENIES) Hx Bipolar Disorder: No Hx Schizophrenia: No - Patient Surgical History Past Surgical History: Yes Hx Neurologic Surgery: No Hx Cataract Extraction: No Hx Cardiac Surgery: No Hx Lung Surgery: No Hx Breast Surgery: No Hx Breast Biopsy: No Hx Abdominal Surgery: No Hx Appendectomy: No Hx Cholecystectomy: No Hx Genitourinary Surgery: No Hx Section: No Hx Orthopedic Surgery: No Other Surgical History: FX REPAIR-2000 L femur Anesthesia Reaction: Yes - PPD History Date: 10/26/16 Results: NONE - Smoking Cessation Smoking history: Current every day smoker Have you smoked in the past 12 months: Yes Aproximately how many cigarettes per day: 20 Hx Chewing Tobacco Use: No Initiated information on smoking cessation: Yes 'Breaking Loose' booklet given: 04/19/18 - Substance & Tx. History Hx Alcohol Use: No Hx Substance Use: Yes Substance Use Type: Heroin, Marijuana Hx Substance Use Treatment: Yes - Substances Abused Heroin Frequency: Daily Family Disease History - Family Disease History Family Disease History: Other: Father (HTN), Mother (BIPOLAR DISORDER) Admission Physical Exam [facility] - Vital Signs Vital Signs: Vital Signs - 24 hr 04/19/18 14:09 Temperature 98.9 F Pulse Rate 76 Respiratory 18 Rate Blood Pressure 136/92 - Physical General Appearance: Yes: Within Normal Limits HEENTM: Yes: Within Normal Limits Respiratory: Yes: Within Normal Limits Neck: Yes: Within Normal Limits Cardiology: Yes: Within Normal Limits Abdominal: Yes: Within Normal Limits Genitourinary: Yes: Within Normal Limits Back: Yes: Within Normal Limits Musculoskeletal: Yes: Within Normal Limits Extremities: Yes: Within Normal Limits Integumentary: Yes: Within Normal Limits, Track [facility] Breath Alcohol Content Breath Alcohol Content: 0 Urine Drug Screen - Results Drug Screen Negative: No Urine Drug Screen Results: THC-Marijuana, OPI-Opiates
[2018-04-19] MEDS ORDERED: METHADONE HCL 10 MG TABLET (FOR DETOX USE ONLY) PO ONE ×2 (17:16→23:00)
[2018-04-19] MEDS ORDERED: MENTHOL/PHENOL 1 EACH UD MM PRN (17:17)
[2018-04-19] MEDS ORDERED: MAGNESIUM HYDROX 2400MG/30ML ORAL SUSPENSION 30 ML CUP PO PRN (17:17)
[2018-04-19] MEDS ORDERED: LOPERAMIDE HCL 2 MG CAPSULE PO PRN (17:17)
[2018-04-19] MEDS ORDERED: P-EPHED 60MG/TRIPROLIDI 2.5MG TABLET PO PRN (17:17)
[2018-04-19] MEDS ORDERED: guaiFENesin/D-METHORPHAN HB 10 ML UNIT-DOSE CUPS PO PRN (17:17)
[2018-04-19] MEDS ORDERED: ACETAMINOPHEN 325 MG TABLET (FP) PO PRN (17:17)
[2018-04-19] MEDS ORDERED: MAG HYDROX/AL HYDROX/SIMETH 30 ML UNIT-DOSE CUP PO PRN (17:17)
[2018-04-19] MEDS ORDERED: MAGNESIUM CITRATE 300 ML BOTTLE PO PRN (17:17)
[2018-04-19] MEDS: diazePAM 5 MG TABLET PO PRN (19:33)
[2018-04-19] MEDS: IBUPROFEN 400 MG TABLET (FP) PO PRN (19:39)
[2018-04-19] MEDS ORDERED: THIAMINE HCL 100 MG TABLET (FP) PO SCH (22:00)
[2018-04-19] MEDS ORDERED: MELATONIN 5 MG TABLETS PO PRN (22:00)
[2018-04-19] MEDS: cloNIDine HCL 0.1 MG TABLET PO PRN (22:17)
[2018-04-19] MEDS: hydrOXYzine PAMOATE 50 MG CAPSULE (FP) PO PRN (22:18)
[2018-04-20] MEDS: diazePAM 5 MG TABLET PO PRN ×2 (00:30→04:45)
[2018-04-20] MEDS: hydrOXYzine PAMOATE 50 MG CAPSULE (FP) PO PRN ×2 (02:14→10:12)
[2018-04-20] MEDS: cloNIDine HCL 0.1 MG TABLET PO PRN (02:14)
[2018-04-20 09:32] VITALS: BP 137/74; PULSE 96; TEMP 97.7
[2018-04-20] MEDS ORDERED: NICOTINE 21 MG/24 HOURS TOPICAL PATCH TD SCH (10:00)
[2018-04-20] MEDS ORDERED: PRENATAL VITAMINS W/ FOLIC ACID TABLET (FP) PO SCH (10:00)
[2018-04-20] MEDS ORDERED: METHADONE HCL 10 MG TABLET (FOR DETOX USE ONLY) PO ONE (10:00)
[2018-04-20] MEDS: IBUPROFEN 400 MG TABLET (FP) PO PRN (10:06)
[2018-04-20 10:58] LABS: ALK PHOS 81 U/L (45-117); ANION GAP 5 MMOL/L (8-16); BILIRUBIN,TOTAL 0.4 mg/dL (0.2-1); BLOOD UREA NITROGEN 10 mg/dL (7-18); CALCIUM 9.6 mg/dL (8.5-10.1); CHLORIDE 104 mmol/L (98-107); CO2 27 mmol/L (21-32); CREATININE 0.7 mg/dL (0.55-1.3); GLUCOSE,RANDOM 105 mg/dL (74-106); HEMATOCRIT 44.8 % (35.4-49); HEMOGLOBIN 14.6 GM/dL (11.7-16.9); MCHC 32.5 g/dl (32.0-35.9); MEAN CELL VOLUME 89.1 fl (80-96); MEAN PLT VOLUME 7.7 fl (7.5-11.1); PLATELET COUNT 280 K/MM3 (134-434); POTASSIUM 3.9 mmol/L (3.5-5.1); RBC 5.03 M/mm3 (4.00-5.60); RDW 12.7 % (11.9-15.9); SGOT/AST 13 U/L (15-37); SGPT/ALT 25 U/L (13-61); SODIUM 136 mmol/L (136-145); TOT PROT 7.6 g/dl (6.4-8.2); URINE APPEARANCE CLEAR; URINE BILIRUBIN NEGATIVE (<2.0 mg/dL); URINE COLOR LTYELLOW; URINE GLUCOSE (UA) NEGATIVE (NEGATIVE); URINE KETONE NEGATIVE (NEGATIVE); URINE LEUK ESTERASE NEGATIVE (NEGATIVE); URINE NITRITE NEGATIVE (NEGATIVE); URINE PROTEIN NEGATIVE (NEGATIVE); URINE UROBILINOGEN NEGATIVE mg/dL (0.2-1.0); WHITE BLOOD COUNT 10.8 K/mm3 (4.0-10.0)
--- NOTE | 2018-04-20 11:48 | PN ---
[facility] Progress Note (SOAP) Subjective: Anxious nasal congestion Requesting to leave, states he intends getting into a suboxone program and wants methadone out of his system soon rather than later so he can get into the program. States "I have a friend who is going to try get me into the program by Sunday or so" Objective: 04/20/18 11:39 A & O x 3 anxious Vital Signs Temperature 97.7 F 04/20/18 09:31 Pulse Rate 96 H 04/20/18 09:31 Respiratory Rate 18 04/20/18 09:31 Blood Pressure 137/74 04/20/18 09:31 O2 Sat by Pulse Oximetry (%) Laboratory Last Values WBC 10.8 K/mm3 (4.0-10.0) H 04/20/18 07:45 RBC 5.03 M/mm3 (4.00-5.60) 04/20/18 07:45 Hgb 14.6 GM/dL (11.7-16.9) 04/20/18 07:45 Hct 44.8 % (35.4-49) 04/20/18 07:45 MCV 89.1 fl (80-96) 04/20/18 07:45 MCH 29.0 pg (25.7-33.7) 04/20/18 07:45 MCHC 32.5 g/dl (32.0-35.9) 04/20/18 07:45 RDW 12.7 % (11.9-15.9) 04/20/18 07:45 Plt Count 280 K/MM3 (134-434) D 04/20/18 07:45 MPV 7.7 fl (7.5-11.1) 04/20/18 07:45 Sodium 136 mmol/L (136-145) 04/20/18 07:45 Potassium 3.9 mmol/L (3.5-5.1) 04/20/18 07:45 Chloride 104 mmol/L (98-107) 04/20/18 07:45 Carbon Dioxide 27 mmol/L (21-32) 04/20/18 07:45 Anion Gap 5 MMOL/L (8-16) L 04/20/18 07:45 BUN 10 mg/dL (7-18) 04/20/18 07:45 Creatinine 0.7 mg/dL (0.55-1.3) 04/20/18 07:45 Creat Clearance w eGFR > 60 (>60) 04/20/18 07:45 Random Glucose 105 mg/dL (74-106) 04/20/18 07:45 Calcium 9.6 mg/dL (8.5-10.1) 04/20/18 07:45 Total Bilirubin 0.4 mg/dL (0.2-1) 04/20/18 07:45 AST 13 U/L (15-37) L 04/20/18 07:45 ALT 25 U/L (13-61) 04/20/18 07:45 Alkaline Phosphatase 81 U/L (45-117) 04/20/18 07:45 Total Protein 7.6 g/dl (6.4-8.2) 04/20/18 07:45 Albumin 4.0 g/dl (3.4-5.0) 04/20/18 07:45 Urine Color Ltyellow 04/20/18 07:45 Urine Appearance Clear 04/20/18 07:45 Urine pH 6.0 (5.0-8.0) 04/20/18 07:45 Ur Specific [place] 1.014 (1.010-1.035) 04/20/18 07:45 Urine Protein Negative (NEGATIVE) 04/20/18 07:45 Urine Glucose (UA) Negative (NEGATIVE) 04/20/18 07:45 Urine Ketones Negative (NEGATIVE) 04/20/18 07:45 Urine Blood Negative (NEGATIVE) 04/20/18 07:45 Urine Nitrite Negative (NEGATIVE) 04/20/18 07:45 Urine Bilirubin Negative (<2.0 mg/dL) 04/20/18 07:45 Urine Urobilinogen Negative mg/dL (0.2-1.0) 04/20/18 07:45 Ur Leukocyte Esterase Negative (NEGATIVE) 04/20/18 07:45 Assessment: 04/20/18 11:48 Anxiety Plan: will leave AMA
--- NOTE | 2018-04-20 11:54 | DS ---
[facility] Detox Discharge Summary Admission Date: 04/19/18 Discharge Date: 05/02/18 - History Additional Comments: Pls see note Not receptive to education to complete detox. Pt anxious but not in acute distress. Leaving AMA Declines Narcan, states "I have a whole of that at home, with my girlfriend, in my parent's house, everywhere" - Physical Exam Results Vital Signs: Vital Signs Temperature 97.7 F 04/20/18 09:31 Pulse Rate 96 H 04/20/18 09:31 Respiratory Rate 18 04/20/18 09:31 Blood Pressure 137/74 04/20/18 09:31 O2 Sat by Pulse Oximetry (%) Pertinent Admission Physical Exam Findings: withdrawal sx - Medication Discharge Medications: Ambulatory Orders NK [No Known Home Medication] 04/19/18 - Diagnosis (1) Nicotine dependence Current Visit: No Status: Acute Qualifiers: Nicotine product type: cigarettes Substance use status: in withdrawal Qualified Code(s): F17.213 - Nicotine dependence, cigarettes, with withdrawal (2) Opioid dependence with withdrawal Current Visit: No Status: Acute (3) Depressive disorder Current Visit: No Status: Chronic (4) Substance induced mood disorder Current Visit: No Status: Ruled-out - AMA Did Patient Leave Against Medical Advice: Yes
[2018-04-21] MEDS ORDERED: METHADONE HCL 5 MG TABLET (FOR DETOX USE ONLY) PO ONE (10:00)
[2018-04-22] MEDS ORDERED: METHADONE HCL 5 MG TABLET (FOR DETOX USE ONLY) PO ONE (10:00)
[2018-04-23] MEDS ORDERED: METHADONE HCL 10 MG TABLET (FOR DETOX USE ONLY) PO ONE (10:00)
[2018-04-24] MEDS ORDERED: METHADONE HCL 5 MG TABLET (FOR DETOX USE ONLY) PO ONE (06:00)
== END 2018-04-20 11:57 | disposition left against medical advice (07) | DRG 770 ==
LOC: YASAS 12:55 → Y6N 18:36
PROC: HZ2ZZZZ Detoxification Services for Substance Abuse Treatment (ICD-10-PCS; principal; 2018-04-19)
DX: F11.23 Opioid dependence with withdrawal (principal); F12.10 Cannabis abuse, uncomplicated; F17.213 Nicotine dependence, cigarettes, with withdrawal; F32.9 Major depressive disorder, single episode, unspecified; F19.24 Other psychoactive substance dependence with psychoactive substance-induced mood disorder
CPT/HCPCS: 36415; 80053; 81003; 85027; 86593; 87389; J0735